=== PATIENT | female | born 1960 | race Caucasian/White ===

== ENCOUNTER 2017-02-10 05:05 | Day surgery (SDC) | payer OTHER ==
[2017-02-03 08:33] VITALS: BMI 49.0
--- NOTE | 2017-02-03 09:16 | PAT Medication Instructions ---
Service Date Feb 03, 2017. Current Home Medication List Atorvastatin (Lipitor), 10 MG PO QAM Hydrochlorothiazide (Hctz), 25 MG PO QAM Lisinopril (Zestril), 20 MG PO QAM Naproxen Ds (Naprosyn Ds), 550 MG PO BID PRN for Migraine Omeprazole (Prilosec), 40 MG PO QAM Propranolol (Inderal), 10 MG PO TID Ropinirole (Requip), 0.25 MG PO HS Sertraline (Zoloft), 50 MG PO QAM Tramadol (Ultram), 50 MG PO Q6 PRN for Pain Medication Instructions For Your Scheduled Surgery Naproxen Ds (Naprosyn Ds), 550 MG PO BID PRN for Migraine (check with surgeon for instructions) - Hold the following medications the morning of surgery: Hydrochlorothiazide (Hctz), 25 MG PO QAM Lisinopril (Zestril), 20 MG PO QAM - Take the following medications the morning of surgery with a sip of water: Sertraline (Zoloft), 50 MG PO QAM Tramadol (Ultram), 50 MG PO Q6 PRN for Pain (okay to take up to 4 hours prior to surgery if needed) Omeprazole (Prilosec), 40 MG PO QAM Propranolol (Inderal), 10 MG PO TID Atorvastatin (Lipitor), 10 MG PO QAM - Hold the following medications as scheduled the night before surgery: Ropinirole (Requip), 0.25 MG PO HS - Take the following medications as scheduled the night before surgery: Tramadol (Ultram), 50 MG PO Q6 PRN for Pain (if needed) Propranolol (Inderal), 10 MG PO TID If you have any questions please call us at [phone] or [phone] or [phone]
--- NOTE | 2017-02-03 10:09 | DIAGNOSTIC IMAGING REPORT ---
CHEST PREADMISSION(PA/LAT) CLINICAL HISTORY: Preoperative chest COMPARISON STUDY: No previous studies for comparison. FINDINGS: The cardiac and mediastinal contours are normal. There is no evidence of focal pulmonary consolidation. There is no evidence of failure. No pleural effusions are visualized.[ IMPRESSION: No active disease in the chest. Electronically signed by: Mark Anthony Bro M.D. 02/03/2017 10:08 AM Dictated Date/Time: 02/03/2017 10:07 AM
[2017-02-03 10:35] LABS: BASO % 0.4 %; BASO ABS # 0.03 K/uL (0-0.2); COMPLETE YES; EOS % 1.5 %; HEMATOCRIT 41.7 % (37-47); IG% 0.1 %; LYMPH % 28.5 %; LYMPH ABS # 2.24 K/uL (1.2-3.4); MEAN CELL VOLUME 92.9 fL (80-100); MEAN CORPUSCULAR HEMOGLOBIN 29.6 pg (25-34); MEAN CORPUSCULAR HGB CONC 31.9 g/dl (32-36); MEAN PLATELET VOLUME 11.7 fL (7.4-10.4); NEUT % 62.5 %; PLATELET COUNT 228 K/uL (130-400); RED BLOOD COUNT 4.49 M/uL (4.2-5.4); WHITE BLOOD COUNT 7.86 K/uL (4.8-10.8)
[2017-02-03 10:40] LABS: BUN/CREATININE RATIO 14.4 (10-20); CALCIUM 8.8 mg/dl (8.5-10.1); CREATININE 0.68 mg/dl (0.60-1.20); POTASSIUM 4.2 mmol/L (3.5-5.1)
[2017-02-03 10:46] LABS: PARTIAL THROMBOPLASTIN RATIO 1.1; PROTHROMBIN TIME (PATIENT) 10.4 SECONDS (9.0-12.0)
[2017-02-03 16:41] LABS: URINE APPEARANCE CLEAR (CLEAR); URINE BILIRUBIN NEG (NEG); URINE COLOR YELLOW; URINE NITRITE NEG (NEG); URINE PH 8.5 (4.5-7.5); URINE SPECIFIC GRAVITY 1.019 (1.000-1.030); UROBILINOGEN NEG (NEG)
[2017-02-03 16:50] LABS: MANUAL MICROSCOPIC REQUIRED? NO; REVIEW REQ? NO
--- NOTE | 2017-02-09 21:48 | History and Physical ---
History & Physical Date Feb 09, 2017. Chief Complaint Right knee pain History of Present Illness The patient is a 56 year old female with complaints of chronic right knee pain which has worsened. She was treated conservatively but failed conservative management. An MRI of the right knee was performed and showed tricompartmental DJD with tearing of the medial meniscus and possibly the lateral meniscus. She is now being set up for surgical management. Past Medical/Surgical History PMH: HTN, Hyperlipidemia, Morbid obesity, RLS, sleep apnea, migraines, meningioma. Past surgical hx: , colonoscopy, [facility], hysterectomy, achilles tendon surgery bilateral. Social hx: former smoker 1 ppd for 3 years. Quit in 1994. Alcohol use during the holidays. Allergies Coded Allergies: Hydromorphone (Verified Allergy, Unknown, itching, 02/03/17) Topiramate (Verified Allergy, Unknown, PRUITIS, 02/03/17) Uncoded Allergies: ADHESIVE TAPE (Allergy, Unknown, rash and blisters, 02/03/17) Home Medications Scheduled Atorvastatin (Lipitor), 10 MG PO QAM Hydrochlorothiazide (Hctz), 25 MG PO QAM Lisinopril (Zestril), 20 MG PO QAM Omeprazole (Prilosec), 40 MG PO QAM Propranolol (Inderal), 10 MG PO TID Ropinirole (Requip), 0.25 MG PO HS Sertraline (Zoloft), 50 MG PO QAM Scheduled PRN Naproxen Ds (Naprosyn Ds), 550 MG PO BID PRN for Migraine Tramadol (Ultram), 50 MG PO Q6 PRN for Pain Physical Examination Skin: warm/dry, no rash Eyes: normal inspection Head: normocephalic, atraumatic Neck: supple, trachea midline Respiratory/Chest: lungs clear, normal breath sounds, no respiratory distress Cardiovascular: regular rate, rhythm, no murmur Abdomen / GI: normal bowel sounds, non tender Extremities: + pertinent finding (Right knee: swelling noted with mild effusion. + West's. Painful PROM of the right knee. Tender at the medial and lateral joint spaces.) Neurologic/Psych: no motor/sensory deficits, alert, oriented x 3 Diagnosis Right knee medial meniscus tear Right knee lateral meniscus tear Right knee osteoarthritis Plan of Treatment Recommend a right knee arthroscopy with partial medial and partial lateral meniscectomies. All potential risks, benefits, complications, alternatives and rehab have been discussed with the patient and she wishes to proceed. She will be scheduled for 02.10.17 with ASA 81 mg BID for 4 wks for DVT prophylaxis.
[~2017-02-10] VITALS: Ht 157.5 cm; Wt 122.8 kg
[~2017-02-10 05:05] MED LIST: ATOR10TA88 PO; HYDR25TA4 PO; LISI-725 PO; NAPR-1168 PO; PRLSR20 PO; PROP10TA7 PO; ROPI0.25 PO; SERT50TA PO; TRAM-10 PO
[2017-02-10 05:30] VITALS: BP 163/99; PULSE 75; TEMP 36.8; O2SAT 95; Ht 157.5 cm; Wt 122.8 kg
[2017-02-10] MEDS ORDERED: LACTATED RINGER'S 1000ML 1,000 ML IV SCH (06:00)
[2017-02-10] MEDS ORDERED: LACTATED RINGER'S 1000ML 500 ML IV ONE (06:00)
[2017-02-10] MEDS ORDERED: CEFAZOLIN 3000 MG/65 ML D5W IV SCH (06:00)
[2017-02-10] MEDS ORDERED: BUPIVACAINE 0.25% 30 ML VIAL ONE (06:42)
[2017-02-10] MEDS ORDERED: BUPIVACAINE 0.5 % 5 MG/1 ML PF 10ML VIAL ONE (06:42)
[2017-02-10] MEDS ORDERED: MIDAZOLAM HCL 1 MG/ML 2ML VIAL ONE (06:43)
[2017-02-10] MEDS ORDERED: FENTANYL CITRATE INJ 50 MCG/1 ML 2 ML VIAL ONE ×2 (06:43→08:23)
[2017-02-10] MEDS ORDERED: DEXAMETHASONE SOD INJ 4 MG/ML VIAL ONE (06:43)
[2017-02-10] MEDS ORDERED: ONDANSETRON INJ 2 MG/ML 2 ML VIAL ONE (06:43)
[2017-02-10] MEDS ORDERED: LIDOCAINE HCL 2% 2 ML VIAL (20MG/ML) ONE (06:43)
[2017-02-10] MEDS ORDERED: PROPOFOL IV EMULSION 10 MG/ML 20 ML VIAL IV ONE (06:43)
[2017-02-10] MEDS ORDERED: BUPIVACAINE/EPINEPHRINE 0.5% MPF 1:200,000 10 ML VIAL ONE ×2 (07:04→07:05)
[2017-02-10] MEDS ORDERED: EpINEphrine HCL INJ 1 MG/ML 5ML SYRINGE ONE ×2 (07:05→08:33)
--- NOTE | 2017-02-10 07:36 | History & Physical Bridge Note ---
H&P Re-Evaluation Bridge Note: I have examined the patient, reviewed the History & Physical and in the interval since the performance of the History & Physical I have noted the following changes of clinical significance: No changes noted
[2017-02-10] MEDS ORDERED: GLYCOPYRROLATE INJ 0.2 MG/ML VIAL ONE ×2 (07:57→08:15)
[2017-02-10] MEDS ORDERED: ROCURONIUM BROMIDE 10 MG/ML 5 ML VIAL ONE (07:57)
[2017-02-10] MEDS ORDERED: NEOSTIGMINE METHYLSULFATE 5 MG/5 ML SYR ONE (07:57)
[2017-02-10] MEDS ORDERED: DiphenhydrAMINE HCL 50 MG/ML VIAL ONE (08:06)
[2017-02-10] MEDS ORDERED: SUCCINYLCHOLINE CHLORIDE 20 MG/ML 10 ML VIAL IV ONE (08:06)
[2017-02-10] MEDS ORDERED: METOCLOPRAMIDE HCL INJ 5 MG/ML 2 ML VIAL ONE (08:06)
[2017-02-10] MEDS ORDERED: SCOPOLAMINE 1.5 MG TDSY TD ONE (08:19)
[2017-02-10] MEDS ORDERED: ATROPINE SULFATE 0.1 MG/ML 5ML SYR IV PRN (08:30)
[2017-02-10] MEDS ORDERED: LABETALOL HCL IV 5 MG/ML 20ML IV PRN (08:30)
[2017-02-10] MEDS ORDERED: ONDANSETRON INJ 2 MG/ML 2 ML VIAL IV PRN (08:30)
[2017-02-10] MEDS ORDERED: MEPERIDINE HCL 25 MG/ML CARP IV PRN (08:30)
[2017-02-10] MEDS ORDERED: EpHEDrine SULFATE INJ 50 MG/ML AMP IV PRN (08:30)
[2017-02-10] MEDS ORDERED: OXYC-57 PO ×2 (08:35→12:30)
[2017-02-10] MEDS ORDERED: LABETALOL HCL IV 5 MG/ML 20ML IV ONE (08:35)
--- NOTE | 2017-02-10 08:37 | Discharge Instructions ---
Discharge Instructions Date of Service Feb 10, 2017. Admission Reason for Admission: Right Knee Lateral/Medial Meniscus Tears Discharge Discharge Diagnosis / Problem: right knee medial meniscus tear, lateral meniscus tear, osteoarthritis Discharge Goals Goal(s): Decrease discomfort, Improve function Activity Recommendations Activity Limitations: per Instructions/Follow-up section Weightbearing Status: Right weightbearing (as tolerated) Instructions / Follow-Up Instructions / Follow-Up ACTIVITY RECOMMENDATIONS: * You may walk on the leg with or without crutches as comfort permits. * Bending of the knee should start at once. * Do not shower for 48 hours following surgery. SPECIAL CARE INSTRUCTIONS: * You may cleanse the skin adjacent to the small wounds with soap and water at the time of the first dressing change. * The application of an ice bag to the front and sides of the knee will decrease swelling and discomfort for the first 48 hours. * The small incisions may be sore and develop bruising. This bruising does not require any special care. SPECIAL PRECAUTIONS: * If you experience unusual pain unrelieved by prescriptions, temperature elevation (100 degrees F. or above) or progressive swelling or bleeding, you should contact our office at for further evaluation. * You may have been prescribed pain medication. If you experience nausea and/or fine skin rash, discontinue this medication and contact our office at for an alternate medication. DRESSING: * Dressing should be comfortable and absorb any leakage of fluid and/or blood. * The dressing may become moist or bloodstained. * Dressing may be removed 3 after surgery and bandaids placed over the small surgical incisions. If can be removed sooner if it becomes very soiled or loose. * Bandaids may be used over next several days as needed and can be discontinued when there is not further drainage from the wounds. FOLLOW UP VISIT: If appointment is not already scheduled: Please call [facility] to make a follow-up appointment for 2 weeks after your surgery at . . Current Hospital Diet Patient's current hospital diet: Discharge Diet Recommended Diet: Regular Diet Pending Studies Studies pending at discharge: no Medical Emergencies . Who to Call and When: Medical Emergencies: If at any time you feel your situation is an emergency, please call 101 immediately. . Non-Emergent Contact Non-Emergency issues call your: Surgeon Call Non-Emergent contact if: temperature is above 101, your pain is not controlled, your pain is worsening, wound has increased drainage, wound has increased redness . "Provider Documentation" section prepared by Lamont Murillo. . VTE Core Measure Inpt VTE Proph given/why not?: Treatment not indicated
[2017-02-10] MEDS ORDERED: OXYCODONE/ACETAMINOPHEN 5-325 TAB PO PRN (08:45)
--- NOTE | 2017-02-10 09:41 | [facility] Post Operative Brief Note ---
Immediate Operative Summary Operative Date Feb 10, 2017. Pre-Operative Diagnosis Right knee medial and lateral meniscus tears; right knee osteoarthritis Post-Operative Diagnosis Right knee medial and lateral meniscus tears; right knee osteoarthritis; Grade 3 degenerative joint disease femoral trochlear, patella and medial femoral condyle; Synovitis Procedure(s) Performed Right Knee Arthroscopy, abrasion chondroplasty medial femoral condyle, patella and femoral trochlea, Partial Medial and Lateral Menisectomies, synovectomy Surgeon Dr. Elizondo Recreation Teacher Surgeon(s) none Estimated Blood Loss 5 cc Findings See dict Specimens None Drains N Anesthesia GLMA w/ local Complication(s) None Disposition Recovery Room / PACU
[2017-02-10] MEDS: FENTANYL CITRATE INJ 50 MCG/1 ML 2 ML VIAL IV PRN ×2 (09:46→09:56)
[2017-02-10] MEDS ORDERED: NURSING VERBAL MED ORDER ONE (10:00)
[2017-02-10] MEDS ORDERED: ACETAMINOPHEN 1000 MG/100 ML IV IV ONE (10:04)
[2017-02-10 10:25] VITALS: BP 166/72; PULSE 61; TEMP 36.6; O2SAT 96
[2017-02-10 10:55] VITALS: BP 171/78; PULSE 64; O2SAT 93
--- NOTE | 2017-02-10 11:00 | Anesthesiology Progress Note ---
Anesthesia Post Op Note Date & Time Feb 10, 2017 at 11:00 Vital Signs Pain Intensity: 10.0 Vital Signs Past 12 Hours Date Time Temp Pulse Resp B/P (MAP) Pulse Ox O2 Delivery O2 Flow Rate FiO2 02/10/17 10:25 36.6 61 20 166/72 96 Nasal Cannula 3 02/10/17 10:10 36.1 63 12 143/65 93 Nasal Cannula 4 02/10/17 10:00 67 12 136/57 97 Oxymask 4 02/10/17 09:50 65 17 146/72 96 Oxymask 10 02/10/17 09:40 73 18 163/83 97 Oxymask 10 02/10/17 09:32 36.8 73 16 178/107 95 Oxymask 10 02/10/17 05:30 36.8 75 18 163/99 (120) 95 Room Air Notes Mental Status: alert / awake / arousable, participated in evaluation Pt Amnestic to Procedure: Yes Nausea / Vomiting: adequately controlled Pain: adequately controlled Airway Patency, RR, SpO2: stable & adequate BP & HR: stable & adequate Hydration State: stable & adequate Anesthetic Complications: no major complications apparent
[2017-02-10 11:25] VITALS: BP 161/73; PULSE 55; O2SAT 93
[2017-02-10] MEDS ORDERED: KETOROLAC TROMETHAMINE 30 MG/ML VIAL ONE (11:39)
--- NOTE | 2017-02-10 18:23 | OPERATIVE REPORT ---
DATE OF OPERATION: 02/10/2017 PREOPERATIVE DIAGNOSES: 1. Right knee medial meniscus tear. 2. Lateral meniscus tear. 3. Chondromalacia of patella and degenerative changes. POSTOPERATIVE DIAGNOSES: 1. Right knee medial meniscus tear. 2. Lateral meniscus tear. 3. Degenerative joint disease grade 3 of the medial femoral condyle. 4. Degenerative joint disease grade 3-4 of the femoral trochlea. 5. Degenerative joint disease grade 3 of the patella. 6. Synovitis. PROCEDURES: 1. Right knee arthroscopy with partial medial meniscectomy. 2. Partial lateral meniscectomy. 3. Abrasion chondroplasty to bleeding bone of the medial femoral condyle. 4. Abrasion chondroplasty to bleeding bone of the patella. 5. Abrasion chondroplasty to bleeding bone of the femoral trochlea. 6. Synovectomy. SURGEON: Dr. Karsten Elizondo. ANALYTICS LEAD: None. ANESTHESIA: General LMA with intra-articular local. SPECIMENS: None. DRAINS: None. COMPLICATIONS: None. BLOOD LOSS: 5 mL. PERTINENT HISTORY: This is a 56-year-old woman who has had chronic progressive and worsening right knee pain over the last several months. She attempted conservative management including home exercises, weight loss, bracing, anti-inflammatories, shoewear modification, and physical therapy and failed all measures. She had an MRI, which demonstrated a significant tear of the posterior horn of the medial meniscus and body of the medial meniscus. Also noted to have degenerative changes and chondromalacia of the patella. The patient was then scheduled for surgery as indicated. All potential risks, benefits, complications, alternatives, rehab, potential for incomplete relief of symptoms, need for further surgery, DVT, PE, , persistent pain, swelling, scarring, weakness, neurovascular injury, and wound complications were discussed with the patient. The patient also understood that there is a higher risk that she may ultimately need a knee replacement. DESCRIPTION OF PROCEDURE: The patient was taken to the operative suite and placed supine on the operating room table. After review of the consent and identification of proper operative site, the patient was then anesthetized with an LMA placed. The tourniquet was placed high on the right thigh over cast padding. Right lower extremity was then sterilely prepped and draped in the usual fashion. The left lower extremity was then properly padded and protected. A white post was added to the bedrail on the right side. Right lower extremity was then elevated and exsanguinated with Esmarch bandage. Tourniquet was inflated to 350 mmHg. Next, a #11 blade scalpel was used to make an incision in the inferior lateral aspect of the knee followed by placement of blunt trocar and sleeve camera and inflow. Next, a superior medial portal was established using a Veress needle and suction. Next, sequential diagnostic arthroscopy commenced in the suprapatellar pouch and synovitis. Also noted were significant degenerative changes of the patellofemoral joint including grade 3-4 chondromalacia and DJD of the femoral trochlea and grade-3 degenerative changes and chondromalacia of the patella. Next, the medial gutter was inspected and noted to be free of any loose bodies; however, there was noted to be synovitis. Next, the medial joint space was inspected and noted to have a large complex tear of the posterior horn and body of the medial meniscus as well as significant degenerative change of the medial femoral condyle of grade 3. Next, the 18-gauge spinal needle was introduced in the medial compartment, followed by incision with an 11 blade scalpel and placement of a 4.5-mm sucker shaver. An abrasion chondroplasty to the bleeding bone was performed of the medial femoral condyle. Once this was completed, a basket biter was inserted and the damaged portion of the medial meniscus was then resected. The 4.5-mm sucker shaver was then used to smooth and contour the meniscus back to a stable peripheral base. A significant portion of the medial meniscus had been removed; however, significant portion of degenerative change and loss of the meniscus was also noted. Next, the ACL and PCL were inspected and noted to be intact. A probe was inserted and used to test the integrity. This was then followed by inspection of the lateral compartment. There was noted to be some fibrillation of the lateral tibial plateau, which was smoothed using a 4.5-mm sucker shaver; however, the articular cartilage of the condyle was noted to be intact as well as the body and anterior horn of the meniscus. The posterior horn of the lateral meniscus was partially torn. At this point, a partial lateral meniscectomy was then performed with a 4.5-mm sucker shaver. Once the damaged portion of meniscus was then resected, attention was then directed toward the lateral gutter. There was noted to be no loose bodies; however, there was noted to be synovitis in the lateral gutter. At this point, a 4.5-mm sucker shaver was then used to perform synovectomy in the suprapatellar pouch, medial and lateral gutters. Next, the 4.5-mm sucker shaver was then used to perform an abrasion chondroplasty to bleeding bone of the patella and the femoral trochlea. Once all particulate debris was then flushed from the joint, the instruments were then removed from the joint, followed by closure of the incisions with interrupted 4-0 nylon sutures and the joint was then injected with 20 mL 0.5% Marcaine with epinephrine followed by closure of the superior portal with interrupted 4-0 nylon sutures. Next, sterile compressive dressing was applied, overwrapped with an Fortino wrap, the tourniquet was released and the patient was then awakened and taken to recovery in stable condition. I attest to the content of the Intraoperative Record and any orders documented therein. Any exception s are noted below.
== END 2017-02-10 12:40 | disposition home or self-care (01) ==
LOC: C.ACU 05:05
PROVIDERS: ATTEND Orthopaedic Surgery Sports Medicine
DX: S83.241A Other tear of medial meniscus, current injury, right knee, initial encounter (principal); S83.281A Other tear of lateral meniscus, current injury, right knee, initial encounter; M22.41 Chondromalacia patellae, right knee; M65.861 Other synovitis and tenosynovitis, right lower leg; X58.XXXA Exposure to other specified factors, initial encounter; M17.11 Unilateral primary osteoarthritis, right knee; I10 Essential (primary) hypertension; E78.5 Hyperlipidemia, unspecified; G47.30 Sleep apnea, unspecified; Z87.891 Personal history of nicotine dependence; E66.01 Morbid (severe) obesity due to excess calories; Z79.899 Other long term (current) drug therapy

== ENCOUNTER 2022-12-01 09:47 | Observation (INO) ==
--- NOTE | 2022-10-28 14:52 | PAT Medication Instructions ---
Medication Instructions Date of Service October 28, 2022 Home Medications atorvastatin 10 mg tablet 10 mg PO QAM cephalexin 500 mg capsule 500 mg PO TID famotidine 20 mg tablet 20 mg PO BID lisinopril 20 mg tablet 20 mg PO QAM meloxicam 15 mg tablet 15 mg PO QAM omeprazole 40 mg capsule,delayed release 40 mg PO QAM oxycodone-acetaminophen 5 mg-325 mg tablet 1 tab PO Q8H PRN prednisone 10 mg tablet 10 mg PO DIRECTED ropinirole 0.25 mg tablet 0.25 mg PO HS sertraline 100 mg tablet 100 mg PO QAM Continue as directed prednisone 10 mg tablet 10 mg PO DIRECTED ASK your surgeon for instructions meloxicam 15 mg tablet 15 mg PO QAM DO NOT take the morning of surgery lisinopril 20 mg tablet 20 mg PO QAM Take morning of surgery With a small sip of water, OTHERWISE NOTHING TO EAT OR DRINK AFTER MIDNIGHT: atorvastatin 10 mg tablet 10 mg PO QAM cephalexin 500 mg capsule 500 mg PO TID famotidine 20 mg tablet 20 mg PO BID omeprazole 40 mg capsule,delayed release 40 mg PO QAM oxycodone-acetaminophen 5 mg-325 mg tablet 1 tab PO Q8H PRN(if needed) sertraline 100 mg tablet 100 mg PO QAM Take evening before surgery cephalexin 500 mg capsule 500 mg PO TID famotidine 20 mg tablet 20 mg PO BID oxycodone-acetaminophen 5 mg-325 mg tablet 1 tab PO Q8H PRN(if needed) ropinirole 0.25 mg tablet 0.25 mg PO HS Other Notes If you have any questions please call us at [phone] or [phone] or [phone] or [phone]
--- NOTE | 2022-11-02 08:55 | Anesthesiology Consultation ---
Date of Service November 02, 2022 Assessment & Plan (1) Encounter for pre-operative examination: Chart Review Chart Review: Acceptable Risk for Surgery and Patient seen in Pre Admission Testing - Due to BMI- patient is NOT an Outpatient Joint candidate Per PAT appt on 11/02/22, patient denies any recent travel or large group activities. Pt is vaccinated for Covid. Will leave to surgeon's discretion if preop Covid testing needed. Educated on importance of using Covid precautions one week prior to surgery Teaching & Discussion Pre-Anesthesia Teaching/Discussion Notes: Instructed NPO after midnight before surgery,except medications with 15 cc of water. Medication instructions provided according to the PAT guidelines. History Surgery Operation Date: 12/01/22 11:45 Proposed Procedures p Right Total Knee Arthroplasty - Vernon Eddy MD Height/Weight Height: 5 ft 2 in Weight: 104 kg Allergies Allergy/AdvReac Type Severity Reaction Status Date / Time hydromorphone Allergy Mild itching Verified 10/28/22 14:18 topiramate Allergy Mild PRUITIS Verified 10/28/22 14:18 ADHESIVE TAPE Allergy Mild rash and Uncoded 10/28/22 14:18 blisters Medications Home Medications Medication Instructions Recorded Confirmed Last Taken atorvastatin 10 mg tablet 10 mg PO QAM 10/28/22 10/28/22 Unknown cephalexin 500 mg capsule 500 mg PO TID 10/28/22 10/28/22 Unknown famotidine 20 mg tablet 20 mg PO BID 10/28/22 10/28/22 Unknown lisinopril 20 mg tablet 20 mg PO QAM 10/28/22 10/28/22 Unknown meloxicam 15 mg tablet 15 mg PO QAM 10/28/22 10/28/22 Unknown omeprazole 40 mg capsule,delayed 40 mg PO QAM 10/28/22 10/28/22 Unknown release oxycodone-acetaminophen 5 mg-325 1 tab PO Q8H PRN Pain 10/28/22 10/28/22 Unknown mg tablet prednisone 10 mg tablet 10 mg PO DIRECTED 10/28/22 10/28/22 Unknown ropinirole 0.25 mg tablet 0.25 mg PO HS 10/28/22 10/28/22 Unknown sertraline 100 mg tablet 100 mg PO QAM 10/28/22 10/28/22 Unknown Past Medical History Medical History (Updated 11/02/22 @ 14:57 by Lidia Kay PA-C) Anxiety GERD (gastroesophageal reflux disease) Well controlled and stable Hiatal hernia Hyperlipidemia Hypertension Multiple fractures of fingers LEFT HAND 3 FINGER FRACTURE (MIDDLE IS A AN OPEN FX) ([employer] INJURY) Does have suture to third finger - gets removed 11/08/22 Wears brace when doing activities to 2nd, 3rd, and 4th left hand digits On current abx - will finish prior to surgery Surgeon aware and feels injury is healed enough to proceed as scheduled and to be able to use a walker Osteoarthritis Restless leg syndrome Sleep apnea CPAP Exercise / Class Metabolic Activity II 4-5 Yardwork/Stairs/Walk up hill (one flight of stairs- no chest pain or SOB ) Past Surgical History Surgical History H/O Achilles tendon repair RT/LEFT History of section History of colonoscopy History of esophagogastroduodenoscopy (EGD) History of partial hysterectomy Nausea and vomiting after administration of anesthetic agent Past Anesthesia History No Hx of Anesthesia Complications (with exception to PONV ) and No Family Hx of Anesthesia Complications History of PONV No Hx of Motion Sickness and History of PONV (severe - even with pre medication with anti nausea medication ) Social History Smoking Status: Former smoker tobacco type: cigarettes Do You Dip or Chew Tobacco: No Smoking End Date: 1994 Hx Alcohol Use: No substance use type: does not use Review of Systems Patient denies chest pain, shortness of breath, dyspnea on exertion, cough, wheezing, palpitations. No hx of seizures, stroke, [place]. No hx of blood clots or blood transfusions Physical Exam Vital Signs VITALS BP 147/76 P 56 TEMP 98.0 SP02 97% RESP 16 Constitutional no acute distress ENMT Mouth: no TMJ clicking Thyromental Distance: > or= 3.5 Finger Breadths (3.5) Mallampati Class: III Mouth / Teeth: 1. Missing 2. Missing Neck neck extension not limited Respiratory normal respiratory effort; no respiratory distress Auscultation: lungs clear to auscultation bilaterally; no wheezes Cardiovascular Rate/Rhythm: regular rate and regular rhythm Heart Sounds: no murmur Vessels: no carotid bruit Musculoskeletal Spine: no pain with cervical ROM Extremities: extremities normal to inspection Psychiatric Orientation: alert Lab Results Anesthesia Preop Results Results Anesthesia Widget: WBC 7.87 K/ul (4.8-10.8) 11/02/22 Hgb 13.5 g/dl (12.0-16.0) 11/02/22 Hct 39.8 % (37.0-47.0) 11/02/22 Plt 232 K/uL (130-400) 11/02/22 Na 141 mmol/L (136-145) 11/02/22 K 3.9 mmol/L (3.5-5.1) 11/02/22 Cl 106 mmol/L (98-107) 11/02/22 CO2 29 mmol/L (21-32) 11/02/22 BUN 13 mg/dl (6-23) 11/02/22 Creat 0.70 mg/dl (0.6-1.2) 11/02/22 Glucose Level 94 mg/dl (70-99(Fasting)) 11/02/22 PT 10.9 Seconds (9.0-12.0) 11/02/22 PTT 26.0 Seconds (21.0-31.0) 11/02/22 INR 1.0 (0.9-1.1) 11/02/22 Urine Color Dark Yellow 11/02/22 Urine Appearance Clear (Clear) 11/02/22 Urine pH 7.0 (4.5-7.5) 11/02/22 Urine Specific Lester 1.021 (1.000-1.030) 11/02/22 Urine Protein Negative (Negative) 11/02/22 Urine Glucose (UA) Negative (Negative) 11/02/22 Urine Ketones Trace (Negative) H 11/02/22 Urine Blood Negative (Negative) 11/02/22 Urine Nitrite Negative (Negative) 11/02/22 Urine Bilirubin Negative (Negative) 11/02/22 Urine Urobilinogen Negative (Negative) 11/02/22 Urine Leukocyte Esterase Negative (Negative) 11/02/22 Blood Type O Negative 11/02/22 Antibody Screen NEGATIVE 11/02/22 Testing Electrocardiogram Date: 11/02/22 Findings: + SB @ (55bpm ) and + no change from (February 03, 2017 per cardio ) Nonspecific ST abnormality Chest X-Ray Date: 11/02/22 Findings: + NAD COVID-19 Risk Screen Screening Information COVID-19 Screen Date: 11/02/22 Exposure 21 Days Family/Household +COVID Last 21 Days: No Exposure 10 Days Any COVID Exposure Last 10 Days: No Symptoms Last 10 Days Experienced COVID Sx Last 10 Days: No + COVID 0-90 Days COVID + in Last 0-90 Days: No Risk Plan COVID Risk Plan: No Risk Identified Patient Education COVID Preop Screening Education Complete: Yes
--- NOTE | 2022-11-24 08:53 | History & Physical Report ---
Date of Service November 24, 2022 Assessment & Plan (1) Primary osteoarthritis of right knee: Plan: Treatment options discussed with patient. She has failed conservative measures and would like to proceed with surgery. Risks, benefits and alternatives to surgery including but not limited to infection, DVT, pain, stiffness, need for revision surgery, damage to blood vessels, damage to nerves, PE, , were discussed with the patient and they wish to proceed. Plan on right total knee arthroplasty scheduled for [facility] on 12/01/[address] Eddy. Plan on Xarelto post op for DVT prophylaxis. Plan on home health vs OPPT post op. All questions answered. Patient will follow up post op. History of Present Illness Chief Complaint: Right knee pain Primary Care Provider: Anny Dixno PA-C 62yo female with PMHx significant for HTN, high cholesterol, IVANNA who presents with ongoing right knee pain. She has pain interfering with her daily activity. She has failed conservative measurs and would like to proceed with knee replacement. Patient denies headaches, sweats, fevers, chills, double vision, blurred vision, cough, sore throat, dysphagia, chest pain, sob, wheezing, n/v/d/c, numbness, tingling, fatigue, urinary symptoms, mood disorders. ROS positive for right knee pain and stiffness. Allergies Allergy/AdvReac Type Severity Reaction Status Date / Time hydromorphone Allergy Mild itching Verified 10/28/22 14:18 topiramate Allergy Mild PRUITIS Verified 10/28/22 14:18 ADHESIVE TAPE Allergy Mild rash and Uncoded 10/28/22 14:18 blisters Home Medications Medication Instructions Recorded Confirmed Type atorvastatin 10 mg tablet 10 mg PO QAM 10/28/22 10/28/22 History cephalexin 500 mg capsule 500 mg PO TID 10/28/22 10/28/22 History famotidine 20 mg tablet 20 mg PO BID 10/28/22 10/28/22 History lisinopril 20 mg tablet 20 mg PO QAM 10/28/22 10/28/22 History meloxicam 15 mg tablet 15 mg PO QAM 10/28/22 10/28/22 History omeprazole 40 mg capsule,delayed 40 mg PO QAM 10/28/22 10/28/22 History release oxycodone-acetaminophen 5 mg-325 1 tab PO Q8H PRN Pain 10/28/22 10/28/22 History mg tablet prednisone 10 mg tablet 10 mg PO DIRECTED 10/28/22 10/28/22 History ropinirole 0.25 mg tablet 0.25 mg PO HS 10/28/22 10/28/22 History sertraline 100 mg tablet 100 mg PO QAM 10/28/22 10/28/22 History Past Med/Surg History Medical History (Updated 11/24/22 @ 08:52 by Vikram Block PA-C) Anxiety GERD (gastroesophageal reflux disease) Well controlled and stable Hiatal hernia Hyperlipidemia Hypertension Multiple fractures of fingers LEFT HAND 3 FINGER FRACTURE (MIDDLE IS A AN OPEN FX) (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) Does have suture to third finger - gets removed 11/08/22 Wears brace when doing activities to 2nd, 3rd, and 4th left hand digits On current abx - will finish prior to surgery Surgeon aware and feels injury is healed enough to proceed as scheduled and to be able to use a walker Osteoarthritis Restless leg syndrome Sleep apnea CPAP Surgical History H/O Achilles tendon repair RT/LEFT History of section History of colonoscopy History of esophagogastroduodenoscopy (EGD) History of partial hysterectomy Nausea and vomiting after administration of anesthetic agent Social History Smoking Status: Former smoker Second Hand Exposure: No; Do You Dip or Chew Tobacco: No; Hx Alcohol Use: No Preferred Language: Swedish Educational Fundraising Director Required: No Beliefs That Will Affect Care: None Current Living Situation: Spouse Feels Safe at Home: Yes Assistive Devices: Cane, CPAP and Glasses Review of Systems All systems reviewed & are unremarkable except as noted in HPI & below Physical Exam Constitutional: well developed and well nourished; no acute distress Eyes: PERRL, conjunctivae normal, anicteric sclerae ENMT: external ear and nose normal, oropharynx normal Neck: trachea midline, no thyromegaly Respiratory: normal respiratory effort, lungs clear to auscultation Cardiovascular: RRR, no murmur, no edema Musculoskeletal: Right knee: ROM 0-100 degrees. Painful ROM. Varus alignment. Mild effusion. Tenderness medial joint line and patella. Stable to valgus and varus stress. Skin: no rashes, warm and dry Neurologic: patellar DTR's 2+ bilat, sensation intact Psychiatric: A+Ox3, euthymic affect Results & Data Diagnostic Findings Bilateral knee x-rays demonstrate that she has tricompartment osteoarthritis bilaterally. Centrally aligned patellae, with slight lateral patellar tilt. She has medial compartment joint space narrowing. Bone on bone in the medial compartment bilaterally, with more bone loss medial side, right greater than left, and slightly larger osteophytes, right greater than left. There is also subchondral sclerosis noted.
[~2022-12-01 09:47] MED LIST changes: +ACETAMINOPHEN 500 MG TAB PO SCH; -ATOR10TA88 PO; +CeleBREX 200 MG CAP PO SCH; +DEXAMETHASONE SOD INJ 4 MG/ML VIAL ONE; +FAMOTIDINE 20 MG TAB PO SCH; +GABAPENTIN 600 MG DOSE PO SCH; -HYDR25TA4 PO; +KETAMINE 50 MG/5 ML SYRINGE ONE; -LISI-725 PO; +LR 500ML BOLUS, THEN 15ML/HR IV SCH; +METOCLOPRAMIDE HCL 10 MG TABLET PO SCH; +MIDAZOLAM HCL 1 MG/ML 2ML VIAL ONE; -NAPR-1168 PO; +ONDANSETRON INJ 2 MG/ML 2 ML VIAL ONE; +ORTHO JOINT ANESTHETIC ONE; -PRLSR20 PO; -PROP10TA7 PO; +PROPOFOL IV EMULSION 10 MG/ML 20 ML VIAL IV ONE; -ROPI0.25 PO; +ROPIVACAINE 0.5% 5 MG/ML 30 ML VIAL ONE; +ROPIVACAINE 0.5% HCL/PF 150 MG, BUPIVACAINE 0.75% MPF 20 ML, EPINEPHrine 30MG/30ML (OR ... INFIL SCH; -SERT50TA PO; -TRAM-10 PO; +TRANEXAMIC ACID 1,000 MG **IV Intra-op IV SCH; +TRANEXAMIC ACID 1,000 MG **IV Pre-op IV SCH; +ceFAZolin 2000MG 2,000 MG/15 ML SYR IV SCH; +dexAMETHasone 4 MG TAB PO SCH; +fentaNYL citrate PF 100 MCG/2 ML VIAL ONE
[2022-12-01] MEDS ORDERED: ePHEDrine sulfate 50 MG/ML AMP IV PRN (10:36)
[2022-12-01] MEDS ORDERED: ONDANSETRON INJ 2 MG/ML 2 ML VIAL IV PRN ×2 (10:36→15:00)
[2022-12-01] MEDS ORDERED: fentaNYL citrate PF 100 MCG/2 ML VIAL IV PRN (10:36)
[2022-12-01] MEDS ORDERED: ATROPINE SULFATE 0.1 MG/ML 10ML SYR IV PRN (10:36)
[2022-12-01] MEDS ORDERED: PROMETHAZINE HCL 6.25 MG in SODIUM CHLORIDE 0.9% 50 ML IV PRN (10:36)
[2022-12-01] MEDS ORDERED: KETOROLAC 30 MG/ML VIAL IV PRN (10:36)
--- NOTE | 2022-12-01 10:41 | History & Physical Bridge Note ---
Date of Service December 01, 2022 History & Physical Bridge Note I have examined the patient, reviewed the History & Physical and in the interval since the performance of the History & Physical I have noted the following changes of clinical significance: no changes noted
[2022-12-01] MEDS ORDERED: PROPOFOL IV EMULSION 10 MG/ML 20 ML VIAL IV ONE (11:44)
--- NOTE | 2022-12-01 12:55 | Operative Report ---
Post Operative Report Pre & Post Diagnosis Operation Date: 12/01/22 11:40 Pre-Op Diagnosis: Right Knee Osteoarthritis , morbid obesity BMI 41.0 Post-Op Diagnosis: Right Knee Osteoarthritis, morbid obesity BMI 41.0 I identified the patient and participated in the time-out.: Yes Procedure Operation Date: 12/01/22 11:40 Actual Procedures p Right Total Knee Arthroplasty, Cemented(Right), increased difficulty BMI 41.0- Vernon Eddy MD Surgeon Vernon Eddy MD Process Laboratory Specialist Vikram TOBIN Estimated Blood Loss 5 Findings Consistent with Post-Op Diagnosis Specimens Bone cuts Drains 2 Hemovac Anesthesia Type MAC Spinal Regional Complications none Disposition Disposition: Recovery Room Indications 62-year-old female with chronic progressive osteoarthritis both knees right greater than left. Patient has limited range of motion and severe pain and disability. Description of Procedure Patient taken to the operating room the size under spinal MAC regional block anesthesia. Patient was placed supine on the operating table. A pneumatic tourniquet was placed about the obese right upper thigh. The right lower extremity was prepped and draped in sterile fashion. Knee exam demonstrated an obese knee old scars from arthroscopic surgery and very obese thigh and a flexion contracture about 15 to 20 degrees with range of motion 20 to 95 degrees of flexion. There is no pseudolaxity and no instability. Could not determine whether she had an effusion due to the obesity.. The leg was elevated exsanguinated with an Esmarch bandage and pneumatic tourniquet was raised to 350 millimeters of mercury. Skin incised sharply in longitudinal fashion. Deep layer of subcutaneous tissue was divided down to the fascia. Subcutaneous flaps elevated. Incision was made through the medial retinaculum extending up in the mid third of the quadriceps tendon and down to the medial tibial tubercle. Intra-articular findings demonstrated tricompartmental osteoarthritis mainly medial compartment and patellofemoral joint with [id number] medial compartment. The oNoise triFlashstartsn total knee arthroplasty system was used. To expose the knee the infrapatellar fat pad was resected. The meniscal remnants and cruciate ligaments were resected. The anterior fat pad over the femur in the area of the anterior flange of the femoral component was resected. Lateral synovial bands release. The femur was exposed. An intramedullary drill hole was made into the canal. A guide reema was placed. Distal femoral cutting guide was adjusted to resect a 5 degree valgus cut with 10 millimeters distal femur resected. The knee was extended and a subperiosteal peel lateral release was performed around the patella. Patella width was measured and width was reproduced using a freehand cut technique and a 31 mm symmetrical patella component. The 3 drill holes were made and the excess lateral facet was beveled off to prevent any impingement. Attention was taken back to the femur which was exposed with retractors and the femoral sizing guide was pinned in position. The drill holes were placed in 3 of external rotation to match epicondylar axis. Femur sized for a 3 posterior stabilized component. The 4-in-1 cutting block was placed and then the anterior posterior and chamfer cuts are made. The tibia was then subluxed. The external tibial cutting guide was just to make a perpendicular cut to the long axis of the tibia below the most deficient bone loss side. A lamina ripper operator was used and the flexion extension gaps were balanced. No releases were required. All posterior osteophytes removed. All meniscal remnants were resected. The tibia exposed and the trial tibial component size 3 was externally rotated in line with the tibial tubercle and pinned in position. The punch for stem was used. The notch cutting device was centered appropriately and the femoral notch cut was made. The femoral trial was inserted. Trial tibial inserts were placed and size 13 gave balanced ligaments through flexion and extension. Patella tracking was assessed. The patella tracked centrally. The trial components were then removed and the orthomix anesthetic cocktail was injected per protocol. The knee was then copiously irrigated with pulsatile lavage saline solution. Final components were then cemented with Refobacin cement. Final components were size 3 right triathlon posterior stabilized femoral component, 3 universal tibial baseplate with a 12 x 50 mm cemented stem and a 13 mm posterior stabilized polyethylene X.3 polyethylene tibial component and a X.3 polyethylene symmetrical patella size 31 x 9. After the cement cured the Betadine soak was used for 3 minutes. Further pulsatile lavage irrigation was then performed and 2 Hemovac drains were brought out laterally. The quadriceps tendon and medial retinaculum were closed with figure of 8 #1 Vicryl sutures. The knee was taken through full range of m otion and the repair was secure. Knee range of motion was 0 through 125 degrees. The subcutaneous tissues were closed with 2-0 Vicryl sutures. Skin was closed with roseline. Sterile dressings were applied. The patient tolerated the procedure well. Drew TOBIN was my physician dam tender assistant who participated as customer care assistant and was involved in all aspects of the procedure including patient positioning prepping and draping,leg positioning ,soft tissue retraction and instrument management and participated in the closing and will participate in postoperative care of the patient. There was increased level difficulty due to this obesity the patient which added 40 minutes to the procedure. The patient tolerated the procedure well. I attest to the content of the Intraoperative Record and any orders documented therein. Any exceptions are noted below.
--- NOTE | 2022-12-01 14:26 | XRay Report ---
XR knee RT 1 or 2V routine CLINICAL HISTORY: Surgical Post Op COMPARISON: None FINDINGS: Alignment of the total right knee arthroplasty is anatomic. No periprosthetic fracture. No unexpected radiopaque foreign bodies are present. There are drains and skin roseline. IMPRESSION: Expected findings following total right knee arthroplasty. ACT 112: Negative or not required by law. Electronically signed by: Lambert Ferguson M.D. 12/01/2022 2:25 PM
--- NOTE | 2022-12-01 14:27 | Anesthesiology Progress Note ---
Date of Service December 01, 2022 Anesthesia Post Procedure Vital Signs Vital Signs: Temp Pulse Pulse Resp BP Pulse Ox O2 Del Method 12/01/22 14:20 36.4 C L 71 16 138/77 100 Nasal Cannula 12/01/22 14:10 66 12 140/87 100 Nasal Cannula 12/01/22 14:00 70 12 147/90 H 98 Nasal Cannula 12/01/22 13:50 73 20 141/88 H 96 Nasal Cannula 12/01/22 13:40 36.0 C L 78 18 145/76 H 96 Nasal Cannula 12/01/22 10:09 36.8 C 77 21 150/87 H 97 Room Air O2 Flow Rate 12/01/22 14:20 2 12/01/22 14:10 2 12/01/22 14:00 2 12/01/22 13:50 2 12/01/22 13:40 2 12/01/22 10:09 Pain Intensity Right Knee: Pain Intensity: 6 Transfer of Care Handoff Completed per policy Notes Mental Status: alert / awake / arousable Patient Amnestic to Procedure: Yes Nausea / Vomiting: adequately controlled Pain: adequately controlled Airway Patency, RR, SpO2: stable & adequate BP & HR: stable & adequate Hydration State: stable & adequate Anesthetic Complications: no major complications apparent
[2022-12-01] MEDS ORDERED: METOCLOPRAMIDE HCL INJ 5 MG/ML 2 ML VIAL IV PRN (15:00)
[2022-12-01] MEDS ORDERED: MoRPHine SULFATE 2 MG/ML CARP IV PRN (15:00)
[2022-12-01] MEDS ORDERED: NALOXONE HCL 0.4 MG/1 ML VIAL/CARP IV PRN (15:00)
[2022-12-01] MEDS ORDERED: MAGNESIUM HYDROXIDE SUSP 30 ML UDC PO PRN (15:00)
[2022-12-01] MEDS ORDERED: bisacodyL 10 MG SUPP PR PRN (15:00)
[2022-12-01] MEDS ORDERED: SODIUM CHLORIDE 0.9% 1000ML 1,000 ML IV SCH (15:00)
[2022-12-01] MEDS: ACETAMINOPHEN 500 MG TAB PO SCH ×2 (15:16→21:09)
--- NOTE | 2022-12-01 16:54 | Consultation ---
Date of Consultation December 01, 2022 Assessment & Plan (1) Primary osteoarthritis of right knee: Patients pain is well managed at this time dvt prophylaxis xarelto. morphine and oxy as needed prn for pain (2) Hypertension: continue lisnopril (3) Hyperlipidemia: continue atorvastatin (4) GERD (gastroesophageal reflux disease): continue omeprazole (5) Anxiety: Depression: continue sertraline Plan Will continue xarelto Gi prophylaxis : continue omeprazole . History of Present Illness Reason for Consultation: MEDICAL MANAGEMENT FOR RIGHT TOTAL KNEE ARTHROPLASTY Attending Physician: Vernon Eddy MD History of Present Illness 62yo female with PMHx significant for HTN, high cholesterol, IVANNA for post op management of right total knee arthroplasty . at this time patients pain is well managed . is having her diet . denies any chest pain , shortness of breath . reviewed meds and allergy profile for patient. denies any diabetes at this time. reconcilled her meds Allergies Allergy/AdvReac Type Severity Reaction Status Date / Time hydromorphone Allergy Mild itching Verified 12/01/22 10:06 topiramate Allergy Mild PRUITIS Verified 12/01/22 10:06 ADHESIVE TAPE Allergy Mild rash and Uncoded 10/28/22 14:18 blisters Home Medications Medication Instructions Recorded Confirmed Type atorvastatin 10 mg tablet 10 mg PO QAM 10/28/22 12/01/22 History cephalexin 500 mg capsule 500 mg PO TID 10/28/22 12/01/22 History famotidine 20 mg tablet 20 mg PO BID 10/28/22 12/01/22 History lisinopril 20 mg tablet 20 mg PO QAM 10/28/22 12/01/22 History meloxicam 15 mg tablet 15 mg PO QAM 10/28/22 12/01/22 History omeprazole 40 mg capsule,delayed 40 mg PO QAM 10/28/22 12/01/22 History release oxycodone-acetaminophen 5 mg-325 1 tab PO Q8H PRN Pain 10/28/22 10/28/22 History mg tablet prednisone 10 mg tablet 10 mg PO DIRECTED 10/28/22 12/01/22 History ropinirole 0.25 mg tablet 0.25 mg PO HS 10/28/22 12/01/22 History sertraline 100 mg tablet 100 mg PO QAM 10/28/22 12/01/22 History Patient History Medical History (Updated 12/01/22 @ 16:50 by Brad Morejon MD) Anxiety GERD (gastroesophageal reflux disease) Well controlled and stable Hiatal hernia Hyperlipidemia Hypertension Multiple fractures of fingers LEFT HAND 3 FINGER FRACTURE (MIDDLE IS A AN OPEN FX) (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) Does have suture to third finger - gets removed 11/08/22 Wears brace when doing activities to 2nd, 3rd, and 4th left hand digits On current abx - will finish prior to surgery Surgeon aware and feels injury is healed enough to proceed as scheduled and to be able to use a walker Osteoarthritis Restless leg syndrome Sleep apnea CPAP Surgical History H/O Achilles tendon repair RT/LEFT History of section History of colonoscopy History of esophagogastroduodenoscopy (EGD) History of partial hysterectomy Nausea and vomiting after administration of anesthetic agent Social History Smoking Status: Former smoker Smoking End Date: 1994; Second Hand Exposure: No; Do You Dip or Chew Tobacco: No; Hx Alcohol Use: No Preferred Language: Tristanian Communication Ability: Effective Overlock Sleeve Setter Required: No Beliefs That Will Affect Care: None Current Living Situation: Spouse Feels Safe at Home: Yes Safety Concerns: Feels Safe At This Time Assistive Devices: Cane and Walker Review of Systems Review of Systems: Reviewed all systems as noted in H/P , rest reviewed as negative Physical Exam Physical Exam: HEENT:No JVD , Normocephalic , atraumatic CV: S1/S2+ , no murmurs Resp: Air entry present bilaterally.no crackles, no wheeze . GI: Abdomen soft non tender . Musculoskeletal: examined for joint tenderness. Skin: no rashes Psych: Normal affect Neuro: Patient is awake alert not in distress , No focal neuro deficits noted Ext: no edema. Results & Data Vital Signs (Past 12 Hours) Vital Signs Temp Pulse Pulse Resp BP Pulse Ox O2 Del Method 12/01/22 15:47 68 18 133/81 100 Room Air 12/01/22 15:15 71 18 153/81 H 100 Nasal Cannula 12/01/22 14:45 36.4 C L 73 16 133/82 100 Nasal Cannula 12/01/22 14:30 70 16 137/82 100 Nasal Cannula 12/01/22 14:20 36.4 C L 71 16 138/77 100 Nasal Cannula 12/01/22 14:10 66 12 140/87 100 Nasal Cannula 12/01/22 14:00 70 12 147/90 H 98 Nasal Cannula 12/01/22 13:50 73 20 141/88 H 96 Nasal Cannula 12/01/22 13:40 36.0 C L 78 18 145/76 H 96 Nasal Cannula 12/01/22 10:09 36.8 C 77 21 150/87 H 97 Room Air O2 Flow Rate 12/01/22 15:47 12/01/22 15:15 2 12/01/22 14:45 2 12/01/22 14:30 2 12/01/22 14:20 2 12/01/22 14:10 2 12/01/22 14:00 2 12/01/22 13:50 2 12/01/22 13:40 2 12/01/22 10:09
[2022-12-01] MEDS: ceFAZolin 2000MG 2,000 MG/15 ML SYR IV SCH (18:16)
[2022-12-01] MEDS: FAMOTIDINE 20 MG TAB PO SCH (19:33)
[2022-12-01] MEDS: DOCUSATE SODIUM 100 MG CAP PO SCH (19:35)
[2022-12-01] MEDS ORDERED: rOPINIRole HCL 0.25 MG TABLET PO SCH (21:00)
[2022-12-01] MEDS ORDERED: SENNA 8.6 MG TAB PO SCH (21:00)
[2022-12-02] MEDS: oxyCODONE HCL IR 5 MG TAB (IMMEDIATE RELEASE) PO PRN ×2 (00:47→08:19)
[2022-12-02] MEDS: ceFAZolin 2000MG 2,000 MG/15 ML SYR IV SCH (02:17)
[2022-12-02] MEDS: ACETAMINOPHEN 500 MG TAB PO SCH (05:19)
[2022-12-02 06:40] LABS: Hematocrit (blood only) 35.9 % (37.0-47.0); Hemoglobin 12.3 g/dl (12.0-16.0); Mean Corpuscular Hemoglobin 30.8 pg (25.0-34.0); Mean Corpuscular Hgb Conc 34.3 g/dL (32.0-36.0); Mean Corpuscular Volume 89.8 fL (80.0-100.0); Mean Platelet Volume 11.5 fL (9.4-12.4); Platelet Count 201 K/uL (130-400); RDW Coefficient of Variation 11.8 % (11.5-14.5); RDW Standard Deviation 38.3 fL (36.4-46.3); White Blood Count 17.63 K/ul (4.8-10.8)
[2022-12-02 06:56] LABS: BUN Creatinine Ratio 20.8 (10-20); Calcium 8.6 mg/dl (8.6-10.3); Creatinine Clr Calc Pharmacy 89.3 ml/min; Est GFR (African American) 103.3 ml/min; Est GFR (Non-African American) 89.1 ml/min; Potassium 3.7 mmol/L (3.5-5.1)
[2022-12-02] MEDS: DOCUSATE SODIUM 100 MG CAP PO SCH (07:45)
[2022-12-02] MEDS: FAMOTIDINE 20 MG TAB PO SCH (07:47)
--- NOTE | 2022-12-02 08:34 | Orthopedic Progress Note ---
Date of Service December 02, 2022 Assessment & Plan (1) Primary osteoarthritis of right knee: Plan: Postop day 1 status post right total knee arthroplasty PT/OT protocols. Weightbearing as tolerated. DVT prophylaxis-rivaroxaban daily, SCDs, FADIA hose Pain management as written. DC planning-patient is planning for outpatient PT upon discharge. Admission and Anticipated Discharge Date Admission Date: December 01, 2022 Subjective Postop day 1 Patient sitting up in bed awake and alert. No complaints this morning. Pain is controlled. Denies shortness of breath, chest pain, lightheadedness. Physical Exam Physical Exam: Dressings are clean, dry, and intact. Calves are soft nontender. Neurovascular intact. Toes are mobile. She has good dorsiflexion and plantarflexion of the right foot. Hemovac drainage is minimal. Results & Data Vital Signs (Past 12 Hours) Vital Signs Temp Pulse Resp BP Pulse Ox O2 Del Method 12/02/22 06:29 36.5 C 62 18 132/78 97 Room Air 12/02/22 03:24 36.5 C 60 18 133/75 96 Room Air 12/01/22 22:58 36.5 C 74 18 164/88 H 94 Room Air Laboratory Results Laboratory Results WBC 17.63 K/ul (4.8-10.8) H 12/02/22 06:04 RBC 4.00 M/uL (4.20-5.40) L 12/02/22 06:04 Hgb 12.3 g/dl (12.0-16.0) 12/02/22 06:04 Hct 35.9 % (37.0-47.0) L 12/02/22 06:04 MCV 89.8 fL (80.0-100.0) 12/02/22 06:04 MCH 30.8 pg (25.0-34.0) 12/02/22 06:04 MCHC 34.3 g/dL (32.0-36.0) 12/02/22 06:04 RDW Std Deviation 38.3 fL (36.4-46.3) 12/02/22 06:04 RDW Coeff of Chaparro 11.8 % (11.5-14.5) 12/02/22 06:04 Plt Count 201 K/uL (130-400) 12/02/22 06:04 MPV 11.5 fL (9.4-12.4) 12/02/22 06:04 Sodium 139 mmol/L (136-145) 12/02/22 06:04 Potassium 3.7 mmol/L (3.5-5.1) 12/02/22 06:04 Chloride 107 mmol/L (98-107) 12/02/22 06:04 Carbon Dioxide 25 mmol/L (21-32) 12/02/22 06:04 Anion Gap 7 (3-11) 12/02/22 06:04 BUN 15 mg/dl (6-23) 12/02/22 06:04 Creatinine 0.72 mg/dl (0.6-1.2) 12/02/22 06:04 Est Cr Clr Drug Dosing 89.3 ml/min 12/02/22 06:04 Est GFR ( Amer) 103.3 ml/min 12/02/22 06:04 Est GFR (Non-Af Amer) 89.1 ml/min 12/02/22 06:04 BUN/Creatinine Ratio 20.8 (10-20) H 12/02/22 06:04 Glucose 105 mg/dl (70-99(Fasting)) H 12/02/22 06:04 Calcium 8.6 mg/dl (8.6-10.3) 12/02/22 06:04 SARS-CoV-2, RNA, NAAT NEGATIVE (NEGATIVE) 12/01/22 09:55 Impressions Knee X-Ray 12/01/22 13:45 XR knee RT 1 or 2V routine CLINICAL HISTORY: Surgical Post Op COMPARISON: None FINDINGS: Alignment of the total right knee arthroplasty is anatomic. No periprosthetic fracture. No unexpected radiopaque foreign bodies are present. There are drains and skin roseline. IMPRESSION: Expected findings following total right knee arthroplasty. ACT 112: Negative or not required by law. Electronically signed by: Lambert Ferguson M.D. 12/01/2022 2:25 PM
[2022-12-02] MEDS ORDERED: MULTIVITAMIN TAB PO SCH (09:00)
[2022-12-02] MEDS ORDERED: lisinopril 20 MG TAB PO SCH (09:00)
[2022-12-02] MEDS ORDERED: ATORVASTATIN 10 MG TAB PO SCH (09:00)
[2022-12-02] MEDS ORDERED: SERTRALINE HCL 100 MG TABLET PO SCH (09:00)
[2022-12-02] MEDS ORDERED: RIVAROXABAN 10 MG TABLET PO SCH (09:00)
[2022-12-02] MEDS ORDERED: PANTOprazole 40 MG TAB PO SCH (09:00)
--- NOTE | 2022-12-02 11:40 | Discharge Summary ---
Date of Service December 02, 2022 Admission HPI Per Admitting Provider 62yo female with PMHx significant for HTN, high cholesterol, IVANNA who presents with ongoing right knee pain. She has pain interfering with her daily activity. She has failed conservative measurs and would like to proceed with knee replacement. Patient denies headaches, sweats, fevers, chills, double vision, blurred vision, cough, sore throat, dysphagia, chest pain, sob, wheezing, n/v/d/c, numbness, tingling, fatigue, urinary symptoms, mood disorders. ROS positive for right knee pain and stiffness. Admission Exam Per Admitting Provider Constitutional: well developed and well nourished; no acute distress Eyes: PERRL, conjunctivae normal, anicteric sclerae ENMT: external ear and nose normal, oropharynx normal Neck: trachea midline, no thyromegaly Respiratory: normal respiratory effort, lungs clear to auscultation Cardiovascular: RRR, no murmur, no edema Musculoskeletal: Right knee: ROM 0-100 degrees. Painful ROM. Varus alignment. Mild effusion. Tenderness medial joint line and patella. Stable to valgus and varus stress. Skin: no rashes, warm and dry Neurologic: patellar DTR's 2+ bilat, sensation intact Psychiatric: A+Ox3, euthymic affect Principal Diagnosis Right knee osteoarthritis Discharge Exam Dressings are clean, dry, and intact. Calves are soft nontender. Neurovascular intact. Toes are mobile. She has good dorsiflexion and plantarflexion of the right foot. Hemovac drainage is minimal Constitutional well developed and well nourished; no acute distress Discharge Data Allergies Allergy/AdvReac Type Severity Reaction Status Date / Time hydromorphone Allergy Mild itching Verified 12/01/22 10:06 topiramate Allergy Mild PRUITIS Verified 12/01/22 10:06 ADHESIVE TAPE Allergy Mild rash and Uncoded 10/28/22 14:18 blisters Consultations 11/29/22 12:47 Consult Hospitalist Routine Procedures Performed Operation Date: 12/01/22 11:40 Actual Procedures p Right Total Knee Arthroplasty, Cemented(Right) - Vernon Eddy MD Ordered Studies 12/01/22 05:00 US - OR guided needle placemen Routine Hospital Course (1) Primary osteoarthritis of right knee: Postop day 1 status post right total knee arthroplasty PT/OT protocols. Weightbearing as tolerated. DVT prophylaxis-rivaroxaban daily, SCDs, FADIA hose Pain management as written. DC planning-patient is planning for outpatient PT upon discharge. Lab Results 12/01/22 12/02/22 12/02/22 Range/Units 09:55 06:04 06:04 WBC 17.63 H (4.8-10.8) K/ul RBC 4.00 L (4.20-5.40) M/uL Hgb 12.3 (12.0-16.0) g/dl Hct 35.9 L (37.0-47.0) % MCV 89.8 (80.0-100.0) fL MCH 30.8 (25.0-34.0) pg MCHC 34.3 (32.0-36.0) g/dL RDW Std Deviation 38.3 (36.4-46.3) fL RDW Coeff of Chaparro 11.8 (11.5-14.5) % Plt Count 201 (130-400) K/uL MPV 11.5 (9.4-12.4) fL Sodium 139 (136-145) mmol/L Potassium 3.7 (3.5-5.1) mmol/L Chloride 107 (98-107) mmol/L Carbon Dioxide 25 (21-32) mmol/L Anion Gap 7 (3-11) BUN 15 (6-23) mg/dl Creatinine 0.72 (0.6-1.2) mg/dl Est Cr Clr Drug Dosing 89.3 ml/min Est GFR ( Amer) 103.3 ml/min Est GFR (Non-Af Amer) 89.1 ml/min BUN/Creatinine Ratio 20.8 H (10-20) Glucose 105 H (70-99(Fasting)) mg/dl Calcium 8.6 (8.6-10.3) mg/dl SARS-CoV-2, RNA, NAAT NEGATIVE (NEGATIVE) Total Time Total Time Spent Total Time Spent (In Minutes): 20 Discharge Plan Discharge Items Patient Disposition: Home - Self-Care Reason For Visit: Right Knee Osteoarthritis Discharge Diagnosis: Right knee osteoarthritis Activity: Per Instructions section Weightbearing: Right weightbearing Weightbearing Comment: as tolerated with walker Non-emergency contact: Surgeon Call non-emergency contact if: you have any medication questions, your pain is not controlled, your pain is unusual for you, you have a fever, your temperature is above 101, your wound has increased redness and your wound has increased drainage Follow-up/Referrals: Anny Dixon PA-C [Primary Care Provider] - Vernon Eddy MD [Surgeon] - ( follow-up with Dr. Eddy or his PA in 2 weeks from the date of surgery for your first postoperative visit.) Diet: Regular Addtl Attending Provider Instructions: ACTIVITY RECOMMENDATIONS: SELF CARE INSTRUCTIONS AFTER TOTAL KNEE REPLACEMENT A. You may need to continue a physical therapy program after discharge from the hospital. There are several options available to you. Your doctor will assist you in selecting the best one for you. 1. An out-patient facility 2 to 3 times a week for therapy or home therapy. 2. Continue working on all exercises taught to you in the hospital. Your goals should be to increase bending of your knee to 90 degrees and beyond and to fully straighten your knee. B. You may progress at your own pace from walking with a walker or crutches to a cane; then to no assistive devices. C. Make walking a part of your daily routine. Be up as much as comfortable with rest periods throughout the day. Rest with leg elevation is very important. Use the ice wrap frequently for the first 3-4 weeks. D. There are no restrictions on activities. You may ride in a car, shop, participate in stick puller and all social activities. E. Wear the long elastic stockings (FADIA hose) 20 hours a day for 2 weeks after surgery. They can be removed several times a day for laundering and for a bath. F. You may shower, no tub baths until cleared by your doctor. SPECIAL CARE INSTRUCTIONS: VERY IMPORTANT TO READ AND REVIEW A. There are a few signs you need to watch for after you are home. Call [facility] if you notice any of the followin. Increased severe knee pain. Some pain is expected especially when you exercise. 2. Increased swelling in your leg or knee; pain or swelling of the calf muscle in either lower leg. 3. Any fluid drainage from the incision. 4. Shortness of breath or chest pain. B. Please call [facility] at if you have any concerns or questions about your operation or recovery. The doctor or his nurse will return your call promptly. C. You must take antibiotics before dental work, bladder, bowel or other surgery. Your doctor will provide you with a permanent care to carry describing this precaution. IMPORTANT: * REMEMBER TO TAKE ASPIRIN, 81 MG, TWICE DAILY FOR 4 WEEKS UNLESS OTHERWISE DIRECTED. THIS IS YOUR BLOOD THINNER. * HIGH RISK PATIENTS MAY BE PRESCRIBED A STRONGER BLOOD THINNER. THIS WILL BE PROVIDED AT DISCHARGE. * CALL IF INCREASED PAIN, REDNESS, DRAINAGE OR FEVER GREATER THAT 101. * WEAR FADIA HOSE 20 HOURS PER DAY FOR 2 WEEKS. You should perform daily dressing changes. You may shower after 48 hours. You can get incision wet indirectly. Do not soak or submerge. IF INCISION IS LEAKING THROUGH DRESSING, CALL THE OFFICE . FOLLOW UP VISIT: If appointment is not already scheduled: Please call [facility] to make a follow-up appointment for 2 weeks after your surgery at . Stand-Alone Forms: [facility] [employer], Smoking Cessation Medications and DC Order Prescriptions: New Xarelto 10 mg Tablet 10 mg PO DAILY 30 Days Qty: 30 0RF acetaminophen [Tylenol Extra Strength] 500 mg Tablet 1,000 mg PO Q8 14 Days Qty: 84 0RF polyethylene glycol 3350 [Miralax] 17 gram powder in packet 17 g PO DAILY PRN (Reason: constipation) Qty: 5 0RF cefadroxil 500 mg capsule 500 mg PO BID Qty: 14 0RF oxycodone 5 mg tablet 5 mg PO Q4H MDD 6 PRN (Reason: pain) Qty: 30 0RF Continued atorvastatin 10 mg Tablet 10 mg PO QAM meloxicam 15 mg Tablet 15 mg PO QAM lisinopril 20 mg Tablet 20 mg PO QAM sertraline 100 mg Tablet 100 mg PO QAM omeprazole 40 mg Capsule,Delayed Release(Dr/Ec) 40 mg PO QAM famotidine 20 mg Tablet 20 mg PO BID ropinirole 0.25 mg Tablet 0.25 mg PO HS Rx Instructions: administer 1-3 hours before bedtime prednisone 10 mg Tablet 10 mg PO DIRECTED Patient Comments: TAKING FOR ARTHRITIS FLARE UP RT FOOT Rx Instructions: see taper instructions Discontinued oxycodone-acetaminophen 5-325 mg Tablet 1 tab PO Q8H PRN (Reason: Pain) cephalexin 500 mg Capsule 500 mg PO TID Patient Comments: OPEN FX LEFT HAND 3 FINGER FRACTURE (MIDDLE IS A OPEN FX) Discharge Orders: Discharge Order (Routine); Ordered 12/02/22 Ordered By: Dom Fuentes Admission Data Admit Date/Time: 12/01/22 13:45 Attending Provider: Vernon Eddy Admit Provider: Vernon Eddy Primary Care Provider: Anny Dixon Other Providers: Jayne Trevizo Manabendra Other Interventions: Discharge Summary Assessment (RN) Last Done: 12/02/22 10:00
--- NOTE | 2022-12-02 13:43 | Hospitalist Progress Note ---
Date of Service December 02, 2022 Assessment & Plan (1) Primary osteoarthritis of right knee: Plan: POD#[address] Eddy Activity and wound care orders as per ortho Pain control with bowel regimen PT/OT Monitor H/H for acute blood loss anemia and transfuse blood products PRN EBL 5 cc Hgb stable at 12.3 (2) Leukocytosis: Plan: WBC 17 K Likely due to intraoperative steroids and stress response No signs of infection (3) Hypertension: Plan: BP controlled, continue lisinopril (4) Hyperlipidemia: Plan: Continue atorvastatin (5) GERD (gastroesophageal reflux disease): Plan: Continue omeprazole (6) Anxiety: Plan: Depression Continue sertraline DVT PROPHYLAXIS Rivaroxaban as per Ortho Thank you for this consultation. We will follow the patient with you during their hospital stay. You can reach a member of the [facility] Hospitalist Team 16/01 via the [facility] in [place] Text. Admission and Anticipated Discharge Date Admission Date: December 01, 2022 Supervising Physician Co-Signing Physician Notes The patient left the hospital before being seen by me. Subjective Follow-up for medical management, s/p right TKA. Patient seen and examined. Sitting up in wheelchair. Feels well, offers no complaints. Eager to be discharged. Denies chest pain or shortness of breath. Pain is well controlled. No abdominal pain or nausea. Urinating and + BM Physical Exam Constitutional: WD/WN, vitals as above no acute distress Respiratory: normal respiratory effort, lungs clear to auscultation Cardiovascular: Rate/Rhythm: regular rate and regular rhythm Vessels: normal peripheral pulses Extremities: no edema Gastrointestinal (Abdomen): Percussion/Palpation: abdomen soft; abdomen nontender Musculoskeletal: S/p right knee surgery, dressing CDI, CSM checks intact RLE, drain in place draining bloody drainage Skin: no rashes, warm and dry Neurologic: no focal motor deficits Psychiatric: A+Ox3, euthymic affect Results & Data Results & Data Vital Signs (Past 12 Hours) Vital Signs Temp Pulse Resp BP Pulse Ox O2 Del Method 12/02/22 10:00 36.5 C 62 18 132/78 97 12/02/22 06:29 36.5 C 62 18 132/78 97 Room Air 12/02/22 03:24 36.5 C 60 18 133/75 96 Room Air Laboratory Results Short CBC 12/02/22 Range/Units 06:04 WBC 17.63 H (4.8-10.8) K/ul Hgb 12.3 (12.0-16.0) g/dl Hct 35.9 L (37.0-47.0) % Plt Count 201 (130-400) K/uL BMP 12/02/22 06:04 Sodium 139 Potassium 3.7 Chloride 107 Carbon Dioxide 25 BUN 15 Creatinine 0.72 Glucose 105 H Calcium 8.6
== END 2022-12-02 11:07 | disposition home or self-care (01) ==
LOC: ASU 09:47 → 3E 09:47
DX: Z87.891 Personal history of nicotine dependence; Z79.899 Other long term (current) drug therapy; E78.5 Hyperlipidemia, unspecified; Z88.5 Allergy status to narcotic agent; I10 Essential (primary) hypertension; Z68.41 Body mass index [BMI] 40.0-44.9, adult; D72.829 Elevated white blood cell count, unspecified; E66.01 Morbid (severe) obesity due to excess calories; M17.11 Unilateral primary osteoarthritis, right knee; K21.9 Gastro-esophageal reflux disease without esophagitis

== ENCOUNTER 2024-01-08 08:25 | Observation (INO) ==
--- NOTE | 2023-12-27 10:44 | PAT Medication Instructions ---
Medication Instructions Date of Service December 27, 2023 Home Medications atorvastatin 10 mg tablet 10 mg PO HS famotidine 20 mg tablet 20 mg PO BID lisinopril 20 mg tablet 20 mg PO QAM meloxicam 15 mg tablet 15 mg PO QAM omeprazole 40 mg capsule,delayed release 40 mg PO QAM ropinirole 0.25 mg tablet 0.25 mg PO HS sertraline 100 mg tablet 150 mg PO QAM trazodone 100 mg tablet 100 mg PO HS ASK your surgeon for instructions meloxicam 15 mg tablet 15 mg PO QAM DO NOT take the morning of surgery lisinopril 20 mg tablet 20 mg PO QAM Take morning of surgery With a small sip of water, OTHERWISE NOTHING TO EAT OR DRINK AFTER MIDNIGHT: famotidine 20 mg tablet 20 mg PO BID omeprazole 40 mg capsule,delayed release 40 mg PO QAM sertraline 100 mg tablet 150 mg PO QAM Take evening before surgery atorvastatin 10 mg tablet 10 mg PO HS famotidine 20 mg tablet 20 mg PO BID ropinirole 0.25 mg tablet 0.25 mg PO HS trazodone 100 mg tablet 100 mg PO HS Other Notes If you have any questions please call us at [phone] or [phone] or [phone] or [phone]
--- NOTE | 2024-01-03 13:25 | Anesthesiology Consultation ---
Date of Service January 03, 2024 Assessment & Plan (1) Encounter for pre-operative examination: - patient reports upcoming Dr. Anny Dixon PCP office visit 01/05/24-will add to chart for completion. - Outpatient joint assessment: Patient is currently scheduled for inpatient pathway. If re-evaluated and patient/surgeon requests outpatient pathway, patient is not ideal candidate for outpatient joint program from anesthesia standpoint. Chart Review Chart Review: Pending: Refer to Additional Notes / Consult section and Patient seen in Pre Admission Testing Teaching & Discussion Pre-Anesthesia Teaching/Discussion Notes: Instructed NPO after midnight before surgery, except medications with 15 cc of water. Medication instructions provided according to the PAT guidelines. History Surgery Operation Date: 01/08/24 13:35 Proposed Procedures p Left Total Knee Arthroplasty - Vernon Eddy MD Height/Weight Height: 5 ft 2 in Weight: 73.8 kg Allergies Allergy/AdvReac Type Severity Reaction Status Date / Time hydromorphone Allergy Mild itching Verified 12/26/23 09:01 topiramate Allergy Mild Itching Verified 01/03/24 13:21 adhesive Allergy rash and Verified 12/26/23 09:01 blisters Medications Home Medications Medication Instructions Recorded Confirmed Last Taken atorvastatin 10 mg tablet 10 mg PO HS 10/28/22 12/26/23 11/29/22 famotidine 20 mg tablet 20 mg PO BID 10/28/22 12/26/23 11/24/22 lisinopril 20 mg tablet 20 mg PO QAM 10/28/22 12/26/23 11/30/22 20:30 meloxicam 15 mg tablet 15 mg PO QAM 10/28/22 12/26/23 11/10/22 omeprazole 40 mg capsule,delayed 40 mg PO QAM 10/28/22 12/26/23 11/24/22 release ropinirole 0.25 mg tablet 0.25 mg PO HS 10/28/22 12/26/23 11/24/22 sertraline 100 mg tablet 150 mg PO QAM 10/28/22 12/26/23 11/24/22 trazodone 100 mg tablet 100 mg PO HS 12/26/23 12/26/23 Unknown Past Medical History Medical History (Updated 01/04/24 @ 08:38 by Mariela Rich PA-C) GERD (gastroesophageal reflux disease) controlled, stable per pt Hiatal hernia History of anxiety Hyperlipidemia Hypertension controlled, stable per pt Multiple fractures of fingers (~2022) Osteoarthritis Restless leg syndrome Sleep apnea no longer needs CPAP due to weight loss per pt Patient denies h/o stroke, seizures, heart attack, heart failure, DM, blood clots/DVTs or blood transfusions. Exercise / Class Metabolic Activity II 4-5 Yardwork/Stairs/Walk up hill (denies chest discomfort or shortness of breath with one flight of stairs) Past Surgical History Surgical History (Updated 01/03/24 @ 13:53 by Mariela Rich PA-C) H/O Achilles tendon repair bilat. History of section History of colonoscopy History of esophagogastroduodenoscopy (EGD) History of partial hysterectomy History of total right knee replacement Hx laparoscopic cholecystectomy (~03/2023) Nausea and vomiting after administration of anesthetic agent denies needing scop patch Past Anesthesia History No Hx of Anesthesia Complications and No Family Hx of Anesthesia Complications History of PONV No Hx of Motion Sickness and History of PONV (denies needing scop patch) Social History Smoking Status: Former smoker tobacco type: cigarettes Do You Dip or Chew Tobacco: No Smoking End Date: 1994 Hx Alcohol Use: Yes alcohol intake frequency: holidays/special occasions only Alcohol Intake Frequency Comment: very rare use Hx Substance Use: No substance use type: does not use Review of Systems Patient denies chest pain, shortness of breath, dyspnea on exertion, fever, chills, cough, wheezing, or palpitations. Physical Exam Vital Signs Vitals BP 122/78 P 64 TEMP 98.8 SP02 98% on RA RESP 17 Physical Patient resting comfortably in chair in no acute distress, alert and oriented, responding appropriately throughout visit Full cervical extension range of motion without pain TMD 3.5 finger breadths Mallampati Score 3 Dentition: several broken teeth; denies loose teeth, caps/crowns, implants or bridges Lungs: normal respiratory effort. Good air movement, clear throughout to auscultation, no adventitious breath sounds Cardiac: regular rate and rhythm, no murmurs noted Carotid arteries: negative bruit bilat Lab Results Anesthesia Preop Results Results Anesthesia Widget: WBC 5.46 K/ul (4.8-10.8) 01/03/24 Hgb 13.1 g/dl (12.0-16.0) 01/03/24 Hct 40.4 % (37.0-47.0) 01/03/24 Plt 203 K/uL (130-400) 01/03/24 Na 139 mmol/L (136-145) 01/03/24 K 4.6 mmol/L (3.5-5.1) 01/03/24 Cl 104 mmol/L (98-107) 01/03/24 CO2 30 mmol/L (21-32) 01/03/24 BUN 18 mg/dl (6-23) 01/03/24 Creat 0.61 mg/dl (0.6-1.2) 01/03/24 Glucose Level 83 mg/dl (70-99(Fasting)) 01/03/24 PT 10.3 Seconds (9.0-12.0) 01/03/24 PTT 26 Seconds (21-31) 01/03/24 INR 0.9 (0.9-1.1) 01/03/24 Urine Color Yellow 01/03/24 Urine Appearance Clear (Clear) 01/03/24 Urine pH 5.5 (4.5-7.5) 01/03/24 Urine Specific [place] 1.021 (1.000-1.030) 01/03/24 Urine Protein Negative (Negative) 01/03/24 Urine Glucose (UA) Negative (Negative) 01/03/24 Urine Ketones Negative (Negative) 01/03/24 Urine Blood Negative (Negative) 01/03/24 Urine Nitrite Negative (Negative) 01/03/24 Urine Bilirubin Negative (Negative) 01/03/24 Urine Urobilinogen Negative (Negative) 01/03/24 Urine Leukocyte Esterase Negative (Negative) 01/03/24 Blood Type O Negative 01/03/24 Antibody Screen NEGATIVE 01/03/24 Testing Electrocardiogram Date: 01/03/24 Sinus bradycardia, rate 59 bpm Chest X-Ray Date: 01/03/24 No acute process.
--- NOTE | 2024-01-07 18:39 | History & Physical Report ---
Date of Service January 07, 2024 Assessment & Plan (1) Osteoarthritis of left knee: Plan: End-stage osteoarthritis left knee. Patient wants proceed with total knee replacement like she had on her opposite knee. Osteoarthritis type: primary Qualified Code(s): M17.12 - Unilateral primary osteoarthritis, left knee History of Present Illness Primary Care Provider: Anny Dixon PA-C 63-year-old female with osteoarthritis left knee failed conservative management patient was proceed with left knee replacement. Patient had successful right knee replacement a year ago. Patient denies headaches, sweats, fevers, chills, double vision, blurred vision, cough, sore throat, dysphagia, chest pain, sob, wheezing, n/v/d/c, numbness, tingling, fatigue, urinary symptoms, mood disorders. ROS positive for high blood pressure high cholesterol snoring use of CPAP, anxiety, shortness of breath when mowing or shoveling, osteoarthritis of the spine, acid reflux, hiatal hernia, kidney stones, nausea with anesthesia. Allergies Allergy/AdvReac Type Severity Reaction Status Date / Time hydromorphone Allergy Mild itching Verified 12/26/23 09:01 topiramate Allergy Mild Itching Verified 01/03/24 13:21 adhesive Allergy rash and Verified 12/26/23 09:01 blisters Home Medications Medication Instructions Recorded Confirmed Type atorvastatin 10 mg tablet 10 mg PO HS 10/28/22 12/26/23 History famotidine 20 mg tablet 20 mg PO BID 10/28/22 12/26/23 History lisinopril 20 mg tablet 20 mg PO QAM 10/28/22 12/26/23 History meloxicam 15 mg tablet 15 mg PO QAM 10/28/22 12/26/23 History omeprazole 40 mg capsule,delayed 40 mg PO QAM 10/28/22 12/26/23 History release ropinirole 0.25 mg tablet 0.25 mg PO HS 10/28/22 12/26/23 History sertraline 100 mg tablet 150 mg PO QAM 10/28/22 12/26/23 History trazodone 100 mg tablet 100 mg PO HS 12/26/23 12/26/23 History Past Med/Surg History Problem List (Updated 01/07/24 @ 18:41 by Vernon Eddy MD) Osteoarthritis of left knee Leukocytosis 12/02/22 Primary osteoarthritis of right knee Encounter for pre-operative examination GERD (gastroesophageal reflux disease) Well controlled and stable Anxiety Hypertension Hyperlipidemia Medical History (Updated 01/07/24 @ 18:41 by Vernon Eddy MD) History of anxiety Hyperlipidemia Hypertension controlled, stable per pt GERD (gastroesophageal reflux disease) controlled, stable per pt Multiple fractures of fingers (~2022) Osteoarthritis Hiatal hernia Restless leg syndrome Sleep apnea no longer needs CPAP due to weight loss per pt Surgical History (Updated 01/03/24 @ 13:53 by Mariela Rich PA-C) History of total right knee replacement Hx laparoscopic cholecystectomy (~03/2023) Nausea and vomiting after administration of anesthetic agent denies needing scop patch H/O Achilles tendon repair bilat. History of esophagogastroduodenoscopy (EGD) History of colonoscopy History of partial hysterectomy History of section Social History Smoking Status: Former smoker Smoking End Date: 1994; Second Hand Exposure: No; Do You Dip or Chew Tobacco: No; Tobacco Cessation Education Requested by Patient: No Hx Alcohol Use: Yes Hx Substance Use: No Preferred Language: Luxembourgish Communication Ability: Effective Cuff Cutter Required: No Beliefs That Will Affect Care: None Current Living Situation: Spouse Other Information That Helps Us Care for You: No Feels Safe at Home: Yes Safety Concerns: Feels Safe At This Time Assistive Devices: Glasses Review of Systems All systems reviewed & are unremarkable except as noted in HPI & below Physical Exam Constitutional: WD/WN, vitals as above Respiratory: normal respiratory effort; no respiratory distress Cardiovascular: Rate/Rhythm: regular rate and regular rhythm Musculoskeletal: Left knee exam demonstrates varus alignment with medial joint line tenderness and crepitation with no instability. Range of motion 0 through 130 degrees. Right knee healed incision with stable range of motion with 0 through 130 degrees range of motion. No pain right knee. Skin: no rashes, warm and dry Neurologic: normal touch/pain/proprioception Psychiatric: A+Ox3, euthymic affect Results & Data Diagnostic Findings Radiographs demonstrate grade 4 medial compartment osteoarthritis left knee and a satisfactory aligned [place] triathlon knee on the right knee.
[~2024-01-08 08:25] MED LIST changes: -ACETAMINOPHEN 500 MG TAB PO SCH; +BUPIVACAINE 0.5 % 5 MG/1 ML PF 10ML VIAL ONE; -CeleBREX 200 MG CAP PO SCH; -DEXAMETHASONE SOD INJ 4 MG/ML VIAL ONE; -FAMOTIDINE 20 MG TAB PO SCH; -GABAPENTIN 600 MG DOSE PO SCH; -KETAMINE 50 MG/5 ML SYRINGE ONE; -LR 500ML BOLUS, THEN 15ML/HR IV SCH; -METOCLOPRAMIDE HCL 10 MG TABLET PO SCH; -MIDAZOLAM HCL 1 MG/ML 2ML VIAL ONE; -ONDANSETRON INJ 2 MG/ML 2 ML VIAL ONE; -ORTHO JOINT ANESTHETIC ONE; -PROPOFOL IV EMULSION 10 MG/ML 20 ML VIAL IV ONE; -ROPIVACAINE 0.5% HCL/PF 150 MG, BUPIVACAINE 0.75% MPF 20 ML, EPINEPHrine 30MG/30ML (OR ... INFIL SCH; -TRANEXAMIC ACID 1,000 MG **IV Intra-op IV SCH; -TRANEXAMIC ACID 1,000 MG **IV Pre-op IV SCH; -ceFAZolin 2000MG 2,000 MG/15 ML SYR IV SCH; -dexAMETHasone 4 MG TAB PO SCH; -fentaNYL citrate PF 100 MCG/2 ML VIAL ONE
--- OUTSIDE RECORDS SUMMARY | 2024-01-08 09:00 | External Medical Summary | Summary of Care ---
Author Name Unknown Organization [facility] Address [address] [place] [address] Phone [phone] Care Team Providers Care Drafter Electromechanical Name Role Phone Anny Dixon PA-C Primary Care Provider [phone] Encounter Details Date Type Department Care Team (Late st Contact Info) Description 01/03/2024 Result Scan Unspecified Department <No scans attached> Allergies Active Allergy Reactions Criticality Noted Date Comments Adhesive Tape 01/05/2015 Blisters Hydromorphone Hcl Itching 05/14/2015 Topiramate Itching 09/03/2014 documented as of this encounter (statuses as of 01/05/2024) Medications Medication Sig Dispensed Refills Start Date End Date Status CPAP every night at bedtime. Active Ondansetron 4 MG Oral Tablet Disintegrating (Zofran)Indications:N ausea without vomiting Place 1 Tablet on tongue every 8 hours as needed for Nausea. dissolve on tongue. 30 Tablet 05/05/2021 Active Naloxone HCl 4 MG/0.1ML Nasal Liquid (Narcan Nasal) Administer 1 spray into 1 nostril for suspected opioid overdose. Seek immediate medical attention. [email or web address] Words [email or web address] Each 3 05/16/2023 Active Atorvastatin Calcium 10 MG Oral Tablet (Lipitor)Indications: Dyslipidemia, goal LDL below 130 Take 1 Tablet by mouth at bedtime. 90 Tablet 3 07/20/2023 Active Famotidine 20 MG Oral Tablet (Pepcid)Indications:G isatu-esophageal reflux disease without esophagitis Take 1 Tablet by mouth in the morning and 1 Tablet before bedtime. 180 Tablet 3 07/20/2023 Active Lisinopril 20 MG Oral Tablet (Prinivil)Indications :HTN, goal below 130/80 Take 1 Tablet by mouth in the morning. 90 Tablet 3 07/20/2023 Active Meloxicam 15 MG Oral Tablet (Mobic)Indications:Ge neralized osteoarthritis Take 1 Tablet by mouth in the morning. 90 Tablet 3 07/20/2023 Active Omeprazole 40 MG Oral Capsule Delayed Release (PriLOSEC)Indications :Gastro-esophageal reflux disease without esophagitis Take 1 Capsule by mouth in the morning. 90 Capsule 3 07/20/2023 Active rOPINIRole HCl 0.25 MG Oral Tablet (Requip)Indications:R LS (restless legs syndrome) Take 1 Tablet by mouth at bedtime. 90 Tablet 3 07/20/2023 Active LORazepam 0.5 MG Oral Tablet (Ativan)Indications:A djustment reaction with anxiety and depression Take 1 Tablet by mouth daily as needed for Anxiety. 10 Tablet 07/20/2023 Active Multivitamin Adult Oral Tablet Chewable Take by mouth. Active Sertraline HCl 100 MG Oral Tablet (Zoloft)Indications:M oderate episode of recurrent major depressive disorder (HCC),SEPIDEH (generalized anxiety disorder) Take 1.5 Tablets by mouth in the morning. 135 Tablet 1 10/05/2023 Active traZODone HCl 100 MG Oral Tablet (Desyrel)Indications: Insomnia secondary to depression with anxiety Take 1 Tablet by mouth at bedtime. 90 Tablet 1 10/05/2023 Active documented as of this encounter (statuses as of 01/05/2024) Active Problems Problem Noted Date Diagnosed Date Moderate episode of recurrent major depressive d isorder 10/05/2023 Insomnia secondary to depression with anxiety Generalized osteoarthritis 07/20/2023 SEPIDEH (generalized anxiety disorder) 10/27/2021 Gastro-esophageal reflux disease without esophag itis 12/31/2020 IVANNA (obstructive sleep apnea) 06/09/2016 RLS (restless legs syndrome) 04/01/2016 Vitamin D deficiency 06/23/2015 Meningioma 08/26/2014 HTN, goal below 130/80 Dyslipidemia, goal LDL below 130 documented as of this encounter (statuses as of 01/05/2024) Resolved Problems Problem Noted Date Diagnosed Date Resolved Date Acute cholecystitis 03/26/2023 07/20/19 Food insecurity 10/31/2022 07/20/2023 Overview: Per [facility] Protocol Current moderate episode of major depressive disorder without prior episode 10/17/2022 Stage 3 chronic kidney disease 10/17/2022 07/20/2023 Body mass index (BMI) of 40. 0 to 44.9 in adult 03/07/2022 07/20/2023 Overview: Per Obesity protocol - Per Obesity protocol Body mass index (BMI) of 45. 0 to 49.9 in adult 11/01/2021 03/10/2022 Overview: Per Obesity protocol Depression with anxiety 06/23/202109/24 Class 3 severe obesity due t o excess calories with serious comorbidity and body mass index (BMI) of 50.0 to 59.9 in adult 06/23/2021 Overview: Per Obesity protocol Major depressive disorder, s carmen episode, unspecified 12/31/2020 06/23/2021 Anxiety disorder due to medical condition 12/31/2020 06/23/2021 Body mass index (BMI) of 50. 0 to 59.9 in adult 03/03/2020 07/08/2021 Overview: Per Obesity protocol - Multifocal PVCs 10/22/2019 10/17/2022 Overview: 13 September 2019. Body mass index (BMI) of 45. 0 to 49.9 in adult 03/27/2017 03/05/2020 Overview: Per Obesity protocol #1 Migraine without aura, not intractable 02/02/2017 07/20/2023 Overview: 3-4x/month - uses Naprosyn Propanolol for prophylaxis Body mass index (BMI) of 40.0-44.9 in adult 06/09/2016 03/30/2017 Overview: Per Obesity protocol #1 Morbid obesity due to excess calories 03/03/2016 07/20/2023 Adjustment disorder with depressed mood 03/03/2016 03/03/2016 Mixed emotional features as adjustment reaction 03/03/2016 02/23/2022 Kidney disease, chronic, sta ge III (GFR 30-59 ml/min) 08/26/2014 09/03/2015 HTN, goal below 140/90 09/29 Impaired fasting glucose documented as of this encounter (statuses as of 01/05/2024) Immunizations Name Administration Dates Next Due COVID-19 mRNA, LNP-s, No Pre serve, 2-Dose Series (Moderna) 02/27/2021,08/20/2020,07/23/2020 COVID-19, MRNA-LNP, 23-24, P F, 30 MCG/0.3 mL, 12 YRS AND ABOVE, IM (PFIZER-Comirnaty) 06/12/2023 H1N1 2009 Influenza, IM 07/11/2009 RSV Vac., Recomb, Adjuvant, PF,0.5 Ml (Arexvy) 09/29/2023 Seasonal Influenza, PF, 6 M & above, IM , (FluLaval or Fluzone) 04/10/2023,04/02/2022,03/04/2021,2017 Seasonal Influenza, Quadriva lent, No Preserve, IM 02/27/2020,05/13/2019,06/30/2016 Seasonal Influenza, Split, I IV3, With Preserve, Inj 05/11/2017,05/14/2015,07/11/2009,2006 TDAP (age 10 and older)(Boostrix) 10/27/2022 TDAP, Age 7 and older, IM (Adacel) 02/03/2016 Zoster Vaccine Recombinant (Shingrix) 07/18/2019 ,05/14/2019 documented as of this encounter Social History Tobacco Use Types Packs/Day Years Used Date Smoking Tobacco: Former Cigarettes 1 3 0 08/27/1991 - 08/26/1994 Smokeless Tobacco: Never Alcohol Use Standard Drinks/Week Comments Not Currently 0 (1 standard drink = 0.6 oz pur e alcohol) PHQ-2 Answer Date Recorded PHQ Adult Total Score 7 10/05/2023 Hunger Vital Sign Answer Date Recorded Within the past 12 months, y ou worried that your food would run out before you got the money to buy more. Never true 07/06/19 24 Within the past 12 months, t he food you bought just didn't last and you didn't have money to get more. Never true 07/06/2023 Childcare Answer Date Recorded Do you feel overwhelmed with taking care of a child, family member or friend? No 07/06/2023 Does your family need help f inding childcare? (Household - for ages 0-17 years) Not on file 07/06/2023 Clothing Answer Date Recorded Have you been unable to get clothing when it was really needed? No 07/06/2023 Is your family able to get c lothes or diapers when needed? (Household - for ages 0-17 years) Not on file 07/06/2023 Personal Safety Answer Date Recorded Do you feel unsafe or have concerns for your saf ety? No 07/06/2023 Do you have concerns for you r family's safety? (Household - for ages 0-17 years) Not on file 07/06/2023 Utilities Answer Date Recorded Do you have trouble paying y our heating, water, or electric bill? No 07/06/2023 Is your family able to pay t he heat, water, or electric bill? (Household - for ages 0-17 years) Not on file 07/06/2023 Does your family have access to good internet? (Household - for ages 0-17 years) Not on file 07/06/2023 Employment Status Answer Date Recorded Are you unemployed or without regular income? No 07/06/2023 Does the household have a re gular source of income? (Household - for ages 0-17 years) Not on file 07/06/2023 Social Connections Answer Date Recorded How often do you feel lonely or isolated from th ose around you? Often 07/06/2023 Financial Resource Strain Answer Date R ecorded Do you have any trouble payi ng for your medications, or do you think you might in the future? No 07/06/2023 Does your family have troubl e paying for medicine? (Household - for ages 0-17 years) Not on file 07/06/2023 Transportation Needs Answer Date Record ed READ ONLY Do you have troubl e getting a ride to medical visits or work? Never True 07/06/2023 Does your family have a hard time getting a ride to doctors visits? (Household - for ages 0-17 years) Not on file 07/06/2023 Has lack of transportation k ept you from medical appointments, meetings, work, or from getting things needed for daily living? Check all that apply. (Adult - for ages 18 years and over) Not on file 07/06/2023 Do you (or your family) have trouble finding or paying for a ride (transportation)? (Household - for ages 0-17 years) Not on file 07/06/2023 Housing Stability Answer Date Recorded Do you currently live in a s helter or have no steady place to sleep at night? No 07/06/2023 READ ONLY Do you think you a re at risk of becoming homeless? No 07/06/2023 Does your family worry about paying for your home or becoming homeless? (Household - for ages 0-17 years) Not on file 0 07/06/2023 Are you homeless or worried that you might be in the future? (Adult - for ages 18 years and over) Not on file Are you (or your family) felicitas eless or worried that you might be in the future? (Household - for ages 0-17 years) Not on file Food Insecurity Answer Date Recorded Do you need food for this week? No 07/06/2023 Are you able to get enough f ood for your family? (Household - for ages 0-17 years) Not on file 07/06/2023 Does your family need food t his week? (Household - for ages 0-17 years) Not on file 07/06/2023 Do you always have enough fo od for your family? (Household - for ages 0-17 years) Not on file 07/06/2023 Sex and Gender Information Value Date Recorded Sex Assigned at Female 10/09/2018 10:26 AM EDT Gender Identity Female 10/09/2018 10:26 AM EDT Sexual Orientation Straight 10/09/2018 10 :26 AM EDT Job Start Date Occupation Industry Not on file Not on file Not on file documented as of this encounter Functional Status Functional Status Response Date of Assess ment Are you deaf or do you have serious difficulty h earing? No 06/15/2015 Are you blind or do you have serious difficulty seeing, even when wearing glasses? No 06/15/2015 Do you have serious difficul ty walking or climbing stairs? (5 years old or older) No 06/15/2015 Do you have difficulty dress ing or bathing? (5 years old or older) No 06/15/2015 Because of a physical, menta l, or emotional condition, do you have difficulty doing errands alone such as visiting a doctor s office or shopping? (15 years old or older) Yes 06/15/20 15 Cognitive Status Response Date of Assessm ent Because of a physical, menta l, or emotional condition, do you have serious difficulty concentrating, remembering, or making decisions? (5 years old or older) Yes 06/15/2015 documented as of this encounter Plan of Treatment Upcoming Encounters Date Type Department Care Team (Late st Contact Info) Description 01/05/2024 2:00 PM EDT Office Visit [address] [place] [id number] Anny Dixon PA-C [address] [place] [address] [place] [id number] 01/19/2024 10:00 AM EDT Office Visit Ophthalmology, [place] [id number] Anthony Navarro DO [place] [id number] 04/15/2024 4:15 PM EDT Appointment Radiology, [address] [place] [phone] Scheduled Procedures Name Priority Associated Diagnoses Date/Ti me COLONOSCOPY FLEXIBLE PROXIMA L DIAGNOSTIC Recall Special screening for malignant neoplasms, colon Health Maintenance Due Date Last Done Comments Cologuard 09/13/2004 Fecal Occult Blood Test 09/13/2004 Sigmoidoscopy 09/13/2004 Influenza Vaccine (FLU shot) (#1) 2024 04/10/2023, 04/02/2022, 03/04/2021, Additional history exists Mammogram 04/13/2024 04/13/2023, 10/2021, 03/11/2022, Additional history exists GFR 07/20/2024 01/03/2024, 06/27, 05/16/2023, Additional history exists Depression Monitoring 10/04/2024 10/05/2023 Colonoscopy 01/05/2025 01/05/2015, 01/05/2015 Colorectal Cancer Screening 01/05/2025 Lipid Panel 02/04/2025 02/05/2020, 01/2017, 12/29/2014, Additional history exists Albumin/Creatinine Ratio 07/20/2026 024, 03/03/2022, 12/01/2016 Diabetes Screening 07/20/2026 01/03/2024, 0 07/20/2023, 05/16/2023, Additional history exists DTaP,Tdap,and Td Vaccines (3 - Td or Tdap) 10/27/2032 10/27/2022, 02/03/2016 Zoster Vaccines Completed 07/18/2019, 05/14/2019 COVID-19 Vaccine Completed 06/12/2023, 09/2020, 08/20/2020, Additional history exists HPV (Gardasil) Vaccine Aged Out No lo nger eligible based on patient's age to complete this topic Hepatitis B Vaccine Aged Out No longe r eligible based on patient's age to complete this topic MENINGOCOCCAL (MENACTRA/MENVEO) Aged Out No longer eligible based on patient's age to complete this topic Pneumococcal Vaccine: Pediatrics (0 to 5 Years) and At-Risk Patients (6 to 64 Years) Aged Out No longer eligible based on patient's age to complete this topic documented as of this encounter Medical Devices Implanted Type Area Die Equipment Operator Device Identifier Shelf Expiration Date Model / Serial / Lot Breast- 2 Implanted:Qty: 1 on 04/06/2022 by Francisco Velez MD Breast [employer] 11/29/2022 / / [id number] Description:stainless steel biopsy site marker left breast documented as of this encounter Procedures Procedure Name Priority Date/Time Associated Diagnosis Comments EKG SCANNED RESULT 01/03/2024 documented in this encounter Results * EKG SCANNED RESULT (01/03/2024) 01/03/2024 No Physician Data Unknown EKG documented in this encounter Care Teams Drafter Electromechanical Relationship Specialty Start Date End Date Anny Dixon PA-C [address] [facility] [place] [phone] PCP - General Physician Tavern Keeper 09/25/20 documented as of this encounter
--- OUTSIDE RECORDS SUMMARY | 2024-01-08 09:00 | External Medical Summary | Summary of Care ---
Author Name Unknown Organization [facility] Address [address] [place] [address] Phone [phone] Care Team Providers Care Infantry Senior Sergeant Name Role Phone Anny Dixon PA-C Primary Care Provider +1- [phone] Reason for Visit * Reason Comments pre-op exam Pt is here for a pre -op , getting a total knee replacement on 01/07, pt has no concerns about the procedure. Encounter Details Date Type Department Care Team (Late st Contact Info) Description 01/05/2024 2:00 PM EDT Office Visit [place] [address] [place] [address] [phone] Anny Dixon PA-C [address] [place] [address] [place] [address] [phone] Preoperative general physical examination*; Primary osteoarthritis of one knee, left Allergies Active Allergy Reactions Criticality Noted Date [...] suspected opioid overdose. Seek immediate medical attention. [email or web address] 1 Each 3 05/16/2023 Active Atorvastatin Calcium [...] Date Resolved Date Acute cholecystitis 03/26/2023 07/20/19 24 Food insecurity 10/31/2022 07/20/2023 Overview: Per [facility] Protocol Current moderate episode of major depressive disorder without prior episode 10/17/2022 3 Stage 3 chronic kidney disease 10/17/2022 07/20/2023 [...] on file documented as of this encounter Last Filed Vital Signs Vital Sign Reading Time Taken Comments Blood Pressure 130/56 01/05/2024 2:06 PM EDT Pulse 62 01/05/2024 2:06 PM EDT Temperature 36.2 C (97.1 F) 01/05/2024 2:06 PM ED T Respiratory Rate 16 01/05/2024 2:06 PM EDT Oxygen Saturation 98% 01/05/2024 2:06 PM EDT Inhaled Oxygen Concentration - - Weight 75.1 kg (165 lb 9.6 oz) 01/05/2024 2:06 P M EDT Height 157.5 cm (5' 2.01") 01/05/2024 2:06 PM ED T Body Mass Index 30.28 01/05/2024 2:06 PM EDT documented in this encounter Functional Status Functional Status Response [...] Yes 06/15/2015 documented as of this encounter Progress Notes * Anny Dixon PA-C - 01/05/2024 2:08 PM EDT Images from the original note were not included. Pre-Operative Medical Evaluation Nursing Notes: Petty Dietrich MED ASSIST 01/05/24 1408 Signed Chief Complaint Patient presents with pre-op exam Pt is here for a pre-op , getting a total knee replacement on 01/07, pt has no concerns about the procedure. Procedure Information Type of Surgery: L TKA Referring Physician / Surgeon: Surjit Date of procedure: 01/08/24 Brief History of Present Illness: 63 yo female with chronic left knee pain. Review of Systems: Constitutional ROS: No change in weight, No weakness, No fatigue, and No fevers, sweats, or chills Eye ROS: No recent significant change in vision, No eye pain, redness, discharge, and No diplopia Ear ROS: No ear pain, No drainage, No tinnitus or vertigo, and No recent change in hearing Nose ROS: No history of frequent colds or sinusitis, No nasal stuffiness, and No significant epistaxis Mouth/Throat ROS: No bleeding gums, No thrush, or No sore throat Neck ROS: No lumps or masses, No swollen glands, No recent swelling in thyroid area, and No significant pain in neck Pulmonary ROS: No cough, sputum, or hemoptysis, No wheezing, No rales, No shortness of breath, and No recent change in breathing Cardiovascular ROS: No chest pain, No shortness of breath, No dyspnea on exertion, No orthopnea, Noparoxysmal nocturnal dyspnea, No edema, No palpitations, and No syncope Gastrointestinal ROS: No abdominal pain, No change in bowel habits, No significant heartburn, No significant change in appetite, No nausea, vomiting, diarrhea, or constipation, No hematemesis, No blood in stools or black tarry stools, No abdominal bloating or early satiety, and No dysphagia Genito-Urinary Female ROS: No dysuria, No frequency, No incontinence, and No urgency Musculoskeletal/Extremities ROS: No pain, redness or swelling on the joints, + L Knee pain Hematologic/Lymphatic ROS: No coagulation disorder, No anemia, No abnormal bleeding, No chills, No bruising, No HIV risk factors, No night sweats, No swollen nodes, No weight loss, and No history of transfusion Skin/Integumentary ROS: No edema, No rash, and No itching Neurologic ROS: Normal balance, No headaches, No seizures, and No weakness Psychiatric ROS: No depression and No anxiety Medical History Problem List: Moderate episode of recurrent major depressive disorder ([facility]) (2023) Insomnia secondary to depression with anxiety (10/05/2023) Generalized osteoarthritis (07/20/2023) Acute cholecystitis (03/26/2023) Food insecurity (10/31/2022) Current moderate episode of major depressive disorder without prior episode ([facility]) (10/17/2022) Stage 3 chronic kidney disease ([facility]) (10/17/2022) Body mass index (BMI) of 40.0 to 44.9 in adult ([facility]) (03/07/2022) Body mass index (BMI) of 45.0 to 49.9 in adult ([facility]) (11/01/2021) SEPIDEH (generalized anxiety disorder) (10/27/2021) Depression with anxiety (06/23/2021) Class 3 severe obesity due to excess calories with serious comorbidity and body mass index (BMI) of 50.0 to 59.9 in adult ([facility]) (06/23/2021) Gastro-esophageal reflux disease without esophagitis (12/31/2020) Major depressive disorder, single episode, unspecified (12/31/2020) Anxiety disorder due to medical condition (12/31/2020) Body mass index (BMI) of 50.0 to 59.9 in adult ([facility]) (03/03/2020) Multifocal PVCs (10/22/2019) Body mass index (BMI) of 45.0 to 49.9 in adult ([facility]) (03/27/2017) Migraine without aura, not intractable (02/02/2017) Body mass index (BMI) of 40.0-44.9 in adult ([facility]) (06/09/2016) IVANNA (obstructive sleep apnea) (06/09/2016) RLS (restless legs syndrome) (04/01/2016) Morbid obesity due to excess calories ([facility]) (03/03/2016) Adjustment disorder with depressed mood (03/03/2016) Mixed emotional features as adjustment reaction (03/03/2016) Vitamin D deficiency (06/23/2015) Meningioma ([facility]) (08/26/2014) Kidney disease, chronic, stage III (GFR 30-59 ml/min) ([facility]) (2014) HTN, goal below 130/80 HTN, goal below 140/90 Dyslipidemia, goal LDL below 130 Impaired fasting glucose Current Medications Multivitamin Adult Oral Tablet Chewable, Take by mouth. Sertraline HCl 100 MG Oral Tablet (Zoloft), 150 mg, Oral, Daily(AM) traZODone HCl 100 MG Oral Tablet (Desyrel), 100 mg, Oral, HS Atorvastatin Calcium 10 MG Oral Tablet (Lipitor), 10 mg, Oral, HS Famotidine 20 MG Oral Tablet (Pepcid), 20 mg, Oral, BID(AM/PM) Lisinopril 20 MG Oral Tablet (Prinivil), 20 mg, Oral, Daily(AM) LORazepam 0.5 MG Oral Tablet (Ativan), 0.5 mg, Oral, Daily PRN Meloxicam 15 MG Oral Tablet (Mobic), 15 mg, Oral, Daily(AM) Omeprazole 40 MG Oral Capsule Delayed Release (PriLOSEC), 40 mg, Oral, Daily(AM) rOPINIRole HCl 0.25 MG Oral Tablet (Requip), 0.25 mg, Oral, HS Naloxone HCl 4 MG/0.1ML Nasal Liquid (Narcan Nasal), Administer 1 spray into 1 nostril for suspected opioid overdose. Seek immediate medical attention. [email or web address] Ondansetron 4 MG Oral Tablet Disintegrating (Zofran), 4 mg, On Tongue, Q8H PRN CPAP, every night at bedtime. Allergies: Adhesive tape, Dilaudid [hydromorphone hcl], and Topamax [topiramate] Past Medical History: has a past medical history of Dyslipidemia, goal LDL below 130, HTN, goal below 140/90, Impaired fasting glucose, and IVANNA (obstructive sleep apnea). Past Surgical History: has a past surgical history that includes total hysterectomy (1992); delivery (1979); Colonoscopy, Diagnostic (Rectum) (01/05/2015); EGD, Flexible, Diagnostic (N/A, 09/03/2015); repair/graftachilles tendon (Bilateral, 1998); EGD, Flexible, Diagnostic (N/A, 03/04/2021); laparoscopy; cholecystectomy (N/A, 03/26/2023); and breast biopsy (Left, 03/2022). Social History: reports that she quit smoking about 29 years ago. Her smoking use included cigarettes. She started smoking about 32 years ago. She has a 3 pack-year smoking history. She has never used smokeless tobacco. She reports that she does not currently use alcohol. She reports that she does not use drugs. Family History: family history includes Dementia in her mother; Diabetes in her grandmother (maternal) and mother; Heart disease in her mother; Hypertension in her brother, mother, and sister; No Past Hx in her sister; Prostate cancer in her father; Stroke in her grandmother (maternal); Thyroid Disorder in her mother. Anesthesia History Type of Anesthesia: General Endotracheal and Caudal block Anesthesia reaction: No History of surgical complications: No Personal history of venous thromboembolic disease: No Physical Exam Vitals: 01/05/24 1406 Temp: 36.2 C (97.1 F) Pulse: 62 Resp: 16 SpO2: 98% BP: 130/56 BMI: 30.28 General: alert, healthy, and no distress Head: Normocephalic, No masses, lesions, tenderness or abnormalities Eye Exam: PERRL, extraocular movements intact, conjunctiva are pink and non- injected, sclera clear Ears: External ears normal, Canals clear, TM's Normal Nose: no mucosal erythema, no mucosal edema, no purulent discharge Oropharynx: no exudate, no erythema, lips, buccal mucosa, and tongue normal, and mucous membranes are moist Neck: supple, no adenopathy, no bruits, thyroid normal size, non-tender, without nodularity Heart: regular rate & rhythm, no murmur, and no gallops Lungs: chest symmetric with normal AP diameter, no chest deformities noted, no chest wall tenderness, lungs clear to auscultation Pulses: radial=2/4, posterior tibial=2/4 Abdomen: abdomen soft, non-tender, and normal bowel sounds Extremities: less than 2 second capillary refill, no edema, no clubbing, no cyanosis Neuro Exam: no focal motor/sensory deficits Gait: stiff Skin: skin color, texture, turgor are normal, no rashes Labs reviewed and are NOT significant. EKG by my review is NOT significant. Surgical Risk Scoring Revised Cardiac Risk Index (RCRI) High-risk type of surgery (examples include vascular and any open intraperitoneal or intrathoracic procedures): 0=No History of ischemic heart disease (history of myocardial infarction or positive exercise test, current compliant of chest pain considered to be secondary to myocardia ischemia, use of nitrate therapy, or ECG with pathological Q waves; do not count prior coronary revascularization procedure unless one of the other criteria for ischemic heart disease is present): 0=No History of heart failure: 0=No History of cerebrovascular disease: 0=No Diabetes mellitus requiring treatment with insulin: 0=No Preoperative serum creatinine >2.0 mg/dL (177 micromol/L): 0=No Pt has revised cardiac index score of: No Risk Factors- 0.4% (95% CI: 0.1-0.8) Screening for Obstructive Sleep Apnea (STOP-BANG) Do you Snore loudly? 0=No Do you often feel Tired, Fatigued, or Sleep? 0=No Has anyone Observed you Stop Breathing or Choking/Gasping during sleep? 0=No Do you have or are you being treated for High Blood Pressure? 1=Yes BMI over 35? 0=No Age older than 50? 1=Yes Neck size large? (For males - 17 inches or larger, For females - 16 inches or larger) 0=No Male? 0=No Score 0-2:low risk IVANNA, 3-4: intermediate risk of IVANNA, 5-8: high risk IVANNA 2 Hx of IVANNA, but lost weight and no longer uses CPAP. Assessment and Plan Preoperative general physical examination (Primary) Primary osteoarthritis of one knee, left - Patient is cleared to proceed with surgery. Follow Up: Return in about 6 months (around 07/07/2024). Functional Assessment They are able to walk up a flight of stairs, walk two blocks at a moderate pace, do heavy house work like vacuuming, and grocery shop. The patient's functional status is good (greater than 4 METS). 1 MET: 4 METs: 4-10 METs: Can take care of self, such as eat, dress or use the toilet. Can walk to block or go up a flight of steps. Can do heavy house work. Surgical Risk Assessment Patient is low medical risk for the listed procedure. Medication adjustments: None Additional consults or testing: No Anny Dixon PA-C documented in this encounter Nursing Notes * Petty Dietrich MED ASSIST - 01/05/2024 2:05 PM EDT Chief Complaint Patient presents with pre-op exam Pt is here for a pre-op , getting a total knee replacement on 01/07, pt has no concerns about the procedure. documented in this encounter Plan of Treatment Upcoming Encounters Date Type Department Care Team (Late st Contact Info) Description 01/19/2024 10:00 AM EDT Office Visit Ophthalmology, [place] [facility] [place] [address] Anthony Navarro DO [facility] [place] [address] 04/15/2024 4:15 PM EDT Appointment Rad[facility], [facility] [address] [facility] [phone] 07/08/2024 2:20 PM EST Office Visit [place] [address] [address] [place] [address] [address] PA-C [facility] [address] [place] [address] Scheduled Procedures Name Priority Associated Diagnoses Date/Ti me COLONOSCOPY FLEXIBLE PROXIMA L DIAGNOSTIC Recall Special screening for malignant neoplasms, colon Health Maintenance Due Date Last Done Comments Cologuard 09/13/2004 Fecal Occult Blood Test 09/13/2004 Sigmoidoscopy 09/13/2004 Influenza Vaccine (FLU shot) (#1) 2024 04/10/2023, 04/02/2022, 03/04/2021, Additional history exists Mammogram 04/13/2024 04/13/2023, 10/2021, 03/11/2022, Additional history exists Depression Monitoring 10/04/2024 10/05/2023 GFR 01/02/2025 01/03/2024, 06/27, 05/16/2023, Additional history exists Colonoscopy 01/05/2025 01/05/2015, 01/05/2015 Colorectal Cancer Screening 01/05/2025 Lipid Panel 02/04/2025 02/05/2020, 06/01/2017, 12/29/2014, Additional history exists Albumin/Creatinine Ratio 07/20/2026 024, 03/03/2022, 12/01/2016 Diabetes Screening 01/02/2027 01/03/2024, 0 07/20/2023, 05/16/2023, Additional history exists [...] this encounter Medical Devices Implanted Type Area Cook Enchilada Device Identifier Shelf Expiration Date Model / Serial / Lot Breast- 2 Implanted:Qty: 1 on 04/06/2022 by Francisco Velez MD Breast [employer] 11/29/2022 / / [id number] Description:stainless steel biopsy site marker left breast documented as of this encounter Visit Diagnoses Diagnosis Preoperative general physical examination- Primary Other specified pre-operative examination Primary osteoarthritis of one knee, left documented in this encounter Care Teams Infantry Senior Sergeant Relationship Specialty Start Date End Date Anny Dixon PA-C [address] [facility] [address] [facility] [place] [address] PCP - General Physician Communications Consultant 09/25/20 documented as of this encounter
--- OUTSIDE RECORDS SUMMARY | 2024-01-08 09:01 | External Medical Summary | Summary of Care ---
Author Name Unknown Organization [facility] Address [address] [place] [address] Phone [phone] Care Team Providers Care It Consultant Name Role Phone Anny Dixon PA-C Primary Care Provider +1- [phone] Encounter Details Date Type Department Care Team (Late st Contact Info) Description 01/05/2024 Orders Only [place] [address] [place], [place] [phone] Anny Dixon PA-C [address] [place], [place] [phone] Allergies Active Allergy Reactions Criticality Noted Date [...] suspected opioid overdose. Seek immediate medical attention. [email or web address] 1 Each 3 05/16/2023 Active Atorvastatin Calcium [...] Description 01/05/2024 2:00 PM EDT Office Visit [address] [place] [address] Anny Dixon PA-C [address] [place] [address] [place] [address] 01/19/2024 10:00 AM EDT Office Visit Ophthalmology, [place] [address] Anthony Navarro DO [place] [address] 04/15/2024 4:15 PM EDT Appointment Radiology, [address] [place] [phone] Scheduled Procedures Name Priority Associated Diagnoses Date/Ti [...] this encounter Medical Devices Implanted Type Area Parts Manager Device Identifier Shelf Expiration Date Model / Serial / Lot Breast- 2 Implanted:Qty: 1 on 04/06/2022 by Francisco Velez MD Breast [employer] 11/29/2022 / / [id number] Description:stainless steel biopsy site marker left breast documented as of this encounter Procedures Procedure Name Priority Date/Time Associated Diagnosis Comments CHEMISTRY-OUTSIDE Routine 01/03/2024 documented in this encounter Results * CHEMISTRY-OUTSIDE (01/03/2024) Not all results display below - see scan for full detail OUTSIDE LAB (SEE SCANNED REPORT) Comment:SCAN INCLUDES: CBCD, COAG, BMP, ALB, UA CREATININE-OUTSID E LAB 0.61 0.6 - 1.2 MG/DL OUTSIDE LAB (SEE SCANNED REPORT) EGFR-OUTSIDE LAB 95.8 ML/MIN/1. 73M2 OUTSIDE LAB (SEE SCANNED REPORT) POTASSIUM-OUTSIDE LAB 4.6 3.5 - 5.1 MMOL/L OUTSIDE LAB (SEE SCANNED REPORT) GLUCOSE-OUTSIDE LAB 83 70 - 99 MG/DL OUTSIDE LAB (SEE SCANNED REPORT) HOURS FASTING OUTSID E LAB (SEE SCANNED REPORT) TRIGLYCERIDES-OUT SIDE LAB OUTSIDE LAB (SEE SCANNED REPORT) CHOLESTEROL-OUTSI DE LAB OUTSIDE LAB (SEE SCANNED REPORT) HDL-OUTSIDE LAB OUTS [facility] LAB (SEE SCANNED REPORT) CHOL/HDL RATIO-OUTSIDE LAB OUTSIDE LA B (SEE SCANNED REPORT) LDL (CALCULATED)-OUTS [facility] LAB OUTSIDE LAB (SEE SCANNED REPORT) LDL (DIRECT MEASURE)-OUTSIDE LAB OUTSIDE LAB (SEE SCANNED REPORT) HEMOGLOBIN, F6M-SGZUVHA LAB OUTSIDE LAB (SEE SCANNED REPORT) PHOSPHORUS-OUTSID E LAB OUTSIDE LAB (SEE SCANNED REPORT) PTH-OUTSIDE LAB OUTS [facility] LAB (SEE SCANNED REPORT) MICROALBUMIN RATIO-OUTSIDE LAB OUTSIDE LA B (SEE SCANNED REPORT) PROTEIN, UA-OUTSIDE LAB NEGATIVE OUTSIDE LAB (SEE SCANNED REPORT) HGB 13.1 12 - 16 G/DL OUTSIDE LAB (SEE SCANNED REPORT) 01/03/2024 Vernon Eddy MD LABORATORY OUTSIDE LAB (SEE SCANNED REPORT) documented in this encounter Care Teams It Consultant Relationship Specialty Start Date End Date Anny Dixon PA-C [address] [place] [id number] [place] [address] PCP - General Physician Inspector Aluminum Boat 09/25/20 documented as of this encounter
--- OUTSIDE RECORDS SUMMARY | 2024-01-08 09:01 | External Medical Summary | Summary of Care ---
Author Name Unknown Organization [facility] Address [address] [place] [address] Phone [phone] Care Team Providers Care Motion Picture Equipment Machinist Name Role Phone Anny Dixon PA-C Primary Care Provider +1- [phone] Encounter Details Date Type Department Care Team (Late st Contact Info) Description 01/05/2024 Orders Only [place] [address] [place], [place] [phone] Anny Dixon PA-C [address] [place], [place] [phone] Allergies Active Allergy Reactions Criticality Noted Date [...] suspected opioid overdose. Seek immediate medical attention. [email or web address] 1 Each 3 05/16/2023 Active Atorvastatin Calcium [...] Description 01/05/2024 2:00 PM EDT Office Visit [address] [place] [address] Anny Dixon PA-C [address] [place] [address] [place] [address] 01/19/2024 10:00 AM EDT Office Visit Ophthalmology, [place] [address] Anthony Navarro DO [place] [address] 04/15/2024 4:15 PM EDT Appointment Radiology, [address] [place] [phone] Scheduled Procedures Name Priority Associated Diagnoses Date/Ti [...] this encounter Medical Devices Implanted Type Area Septic Tank Installer Device Identifier Shelf Expiration Date Model / Serial / Lot Breast- 2 Implanted:Qty: 1 on 04/06/2022 by Francisco Velez MD Breast [employer] 11/29/2022 / / [id number] Description:stainless steel biopsy site marker left breast documented as of this encounter Procedures Procedure Name Priority Date/Time Associated Diagnosis Comments XR CHEST 2 VIEWS Routine 01/03/2024 documented in this encounter Results * XR CHEST 2 VIEWS (01/03/2024) Anatomical Region Laterality Modality Chest Other 01/03/2024 Vernon Eddy MD RADIOLOGY (RAD GEN ERAL) documented in this encounter Care Teams Motion Picture Equipment Machinist Relationship Specialty Start Date End Date Anny Dixon PAMelyC [address] [facility] [address] [place] [address] PCP - General Physician Instructional Technology Director 09/25/20 documented as of this encounter
[2024-01-08] MEDS ORDERED: LIDOCAINE 2% 2 ML VIAL/AMP(20MG/ML) INFIL ONE (09:13)
[2024-01-08] MEDS ORDERED: ONDANSETRON INJ 2 MG/ML 2 ML VIAL ONE (09:13)
[2024-01-08] MEDS ORDERED: PROPOFOL IV EMULSION 10 MG/ML 20 ML VIAL IV ONE ×2 (09:13→14:21)
[2024-01-08] MEDS: dexAMETHasone 4 MG TAB PO SCH (09:14)
[2024-01-08] MEDS: GABAPENTIN 600 MG DOSE PO SCH (09:14)
[2024-01-08] MEDS: CeleBREX 200 MG CAP PO SCH (09:14)
[2024-01-08] MEDS ORDERED: MIDAZOLAM HCL 1 MG/ML 2ML VIAL ONE (09:14)
[2024-01-08] MEDS: LR 60ML/HR IV SCH (09:15)
[2024-01-08] MEDS: METOCLOPRAMIDE HCL 10 MG TABLET PO SCH (09:15)
[2024-01-08] MEDS: ACETAMINOPHEN 500 MG TAB PO SCH ×2 (09:15→21:49)
[2024-01-08] MEDS: FAMOTIDINE 20 MG TAB PO SCH ×2 (09:15→20:08)
[2024-01-08] MEDS: LR 500ML BOLUS, THEN 15ML/HR IV SCH (09:15)
--- NOTE | 2024-01-08 09:42 | History & Physical Bridge Note ---
Date of Service January 08, 2024 History & Physical Bridge Note I have examined the patient, reviewed the History & Physical and in the interval since the performance of the History & Physical I have noted the following changes of clinical significance: no changes noted
[2024-01-08] MEDS ORDERED: fentaNYL citrate PF 100 MCG/2 ML VIAL IV PRN (11:32)
[2024-01-08] MEDS ORDERED: ATROPINE SULFATE 0.1 MG/ML 10ML SYR IV PRN (11:32)
[2024-01-08] MEDS ORDERED: ePHEDrine sulfate 50 MG/ML AMP IV PRN (11:32)
[2024-01-08] MEDS ORDERED: ONDANSETRON INJ 2 MG/ML 2 ML VIAL IV PRN ×2 (11:32→16:01)
[2024-01-08] MEDS ORDERED: KETOROLAC 30 MG/ML VIAL IV PRN (11:32)
[2024-01-08] MEDS: TRANEXAMIC ACID 1,000 MG **IV Pre-op IV SCH (11:52)
[2024-01-08] MEDS: ceFAZolin 2000MG 2,000 MG/15 ML SYR IV SCH ×2 (12:07→19:55)
[2024-01-08] MEDS: HCL INFIL SCH (13:18)
[2024-01-08] MEDS: SODIUM CHLORIDE INFIL SCH (13:18)
[2024-01-08] MEDS: KETOROLAC INFIL SCH (13:18)
[2024-01-08] MEDS: ORTHO JOINT ANESTHETIC ONE (13:18)
[2024-01-08] MEDS: ROPIVACAINE 0.5% INFIL SCH (13:18)
[2024-01-08] MEDS: TRANEXAMIC ACID 1,000 MG **IV Intra-op IV SCH (14:16)
--- NOTE | 2024-01-08 14:34 | Operative Report ---
Post Operative Report Pre & Post Diagnosis Operation Date: 01/08/24 11:15 Pre-Op Diagnosis: Left Knee Osteoarthritis Post-Op Diagnosis: Left Knee Osteoarthritis I identified the patient and participated in the time-out.: Yes Procedure Operation Date: 01/08/24 11:15 Actual Procedures p Left Total Knee Arthroplasty(Left), lateral release- Vernon Eddy MD Surgeon Vernon Eddy MD Bartacker Lamont TOBIN Estimated Blood Loss 10 Findings Consistent with Post-Op Diagnosis Specimens Bone cuts Drains 2 Hemovac Anesthesia Type MAC Spinal Regional Complications none Disposition Disposition: Recovery Room Indications 63 a female with chronic left knee osteoarthritis status post successful right knee replacement now wants proceed with left knee replacement Description of Procedure Patient taken to the operating room the size under spinal MAC regional block anesthesia. Patient was placed supine on the operating table. A pneumatic tourniquet was placed about the left moderately obese upper thigh. The left lower extremity was prepped and draped in sterile fashion. Knee exam demonstrated varus knee small effusion no instability range of motion 0 to 125 degrees. The leg was elevated exsanguinated with an Esmarch bandage and pneumatic tourniquet was raised to 325 millimeters of mercury. Skin incised sharply in longitudinal fashion. Subcutaneous flaps elevated. Incision was made through the medial retinaculum extending up in the mid third of the quadriceps tendon and down to the medial tibial tubercle. Intra-articular findings demonstrated tricompartmental osteoarthritis. [id number] medial compartment with large medial osteophytes and posterior medial osteophytes.. The Myworldwall triathlon total knee arthroplasty system was used. To expose the knee the infrapatellar fat pad was resected. The meniscal remnants and cruciate ligaments were resected. The anterior fat pad over the femur in the area of the location of the anterior flange of the femoral component was resected. The lateral synovial bands were released. The femur was exposed. An intramedullary drill hole was made into the canal. A guide reema was placed. Distal femoral cutting guide was adjusted to resect a 5 degree valgus cut with 8 millimeters distal femur resected. Bone quality was hard. The knee was extended and a subperiosteal peel lateral release was performed around the patella. Patella width was measured and width was reproduced using a freehand cut technique and a 31 patella component. The 3 drill holes were made and the excess lateral facet was beveled off to prevent any impingement. Attention was taken back to the femur which was exposed with retractors and the femoral sizing guide was pinned in position. The drill holes were placed in 3 of external rotation to match the epicondylar axis. The femur sized for a 3 component. The 4-in-1 cutting block was placed and then the anterior posterior and chamfer cuts are made. The tibia was then subluxed. The external tibial cutting guide was adjusted to make a perpendicular cut to the long axis of the tibia below the most deficient bone loss side. Cut was adjusted for slope. A lamina stone spreader operator was used and the flexion extension gaps were balanced. Minor medial posterior medial releases were required. All posterior osteophytes removed. All meniscal remnants were resected. The tibia exposed and the trial tibial component size 3 was externally rotated in line with the tibial tubercle mid third and pinned in position. It was noted that patient did have a significant increased Q angle and to maximally externally rotated tibial component there was minor posterior lateral overhang. The punch for stem was used. Bone quality was very hard. T he notch cutting device was centered appropriately and the femoral notch cut was made. The femoral trial was inserted. Trial tibial inserts were placed and size 13 gave balanced ligaments through flexion and extension. Patella tracking was assessed. The patella tracked with some lateral tilt and slightly laterally I had to do a lateral release to correct patellar tracking and I did preserve th e synovial attachment.. The trial components were then removed and the orthomix anesthetic cocktail was injected per protocol. The knee was then copiously irrigated with pulsatile lavage saline solution. Final components were then cemented with Refobacin cement. Xperience irrigation placed over metal compoments prior to polyethylene insertion. Final components were 3 left posterior stabilized Casey triathlon femoral component, 3 universal tibial baseplate with a 50 mm x 12 mm cemented stem extension with a 13 mm left posterior stabilized X.3 polyethylene tibial bearing insert and a X.3 p olyethylene symmetrical patella 31 x 9 mm component. After the cement cured further pulsatile lavage irrigation was then performed with Xperience and 2 Hemovac drains were brought out laterally. The quadriceps tendon and medial retinaculum were closed with #2 FiberWire [id number] sutures around the medial retinaculum distal quad tendon area 1 over the polyethylene level of the tibial polyethylene and 1 suture at the apex of the split in the quad tendon. Running locking 0 STRATAFIX suture was then used to close quadriceps tendon and medial retinaculum and the distal incision closed with interrupted #1 Vicryl sutures [id number]. Knee was taken through a full range of motion and repair was secure. Knee range of motion was 0 through 130 degrees. The subcutaneous tissues were closed with 2-0 Vicryl sutures. Skin was closed with surgical roseline. Standard sterile dressing was applied including Fortino wrap from the foot to the thigh.. The patient tolerated the procedure well. Lamont TOBIN was my physician speech therapy assistant who participated as digital sales assistant and was involved in all aspects of the procedure including patient positioning prepping and draping,leg positioning ,soft tissue retraction and instrument management and participated in the closing and [] and will participate in postoperative care of the patient. The patient tolerated the procedure well. I attest to the content of the Intraoperative Record and any orders documented therein. Any exceptions are noted below.
--- NOTE | 2024-01-08 15:43 | Anesthesiology Progress Note ---
Date of Service January 08, 2024 Anesthesia Post Procedure Vital Signs Vital Signs: Temp Pulse Pulse Resp BP Pulse Ox O2 Del Method 01/08/24 15:30 36.4 C L 69 16 143/80 H 95 Room Air 01/08/24 15:20 65 16 150/78 H 97 Oxymask 01/08/24 15:10 78 15 154/88 H 96 Oxymask 01/08/24 15:03 36.0 C L 81 16 150/92 H 97 Oxymask 01/08/24 08:55 36.9 C 57 L 20 186/89 H 97 Room Air O2 Flow Rate 01/08/24 15:30 01/08/24 15:20 4 01/08/24 15:10 4 01/08/24 15:03 6 01/08/24 08:55 Transfer of Care Handoff Completed per policy Notes Mental Status: alert / awake / arousable Patient Amnestic to Procedure: Yes Nausea / Vomiting: adequately controlled Pain: adequately controlled Airway Patency, RR, SpO2: stable & adequate BP & HR: stable & adequate Hydration State: stable & adequate Anesthetic Complications: no major complications apparent and Pt Satisfied with anesthetic care
--- NOTE | 2024-01-08 15:44 | Anesthesiology Progress Note ---
Date of Service January 08, 2024 Anesthesia Post Procedure Vital Signs Vital Signs: Temp Pulse Pulse Resp BP Pulse Ox O2 Del Method 01/08/24 15:40 64 16 137/77 95 Room Air 01/08/24 15:30 36.4 C L 69 16 143/80 H 95 Room Air 01/08/24 15:20 65 16 150/78 H 97 Oxymask 01/08/24 15:10 78 15 154/88 H 96 Oxymask 01/08/24 15:03 36.0 C L 81 16 150/92 H 97 Oxymask 01/08/24 08:55 36.9 C 57 L 20 186/89 H 97 Room Air O2 Flow Rate 01/08/24 15:40 01/08/24 15:30 01/08/24 15:20 4 01/08/24 15:10 4 01/08/24 15:03 6 01/08/24 08:55 Transfer of Care Handoff Completed per policy Notes Mental Status: alert / awake / arousable Patient Amnestic to Procedure: Yes Nausea / Vomiting: adequately controlled Pain: adequately controlled Airway Patency, RR, SpO2: stable & adequate BP & HR: stable & adequate Hydration State: stable & adequate Neuraxial Anesthesia: was administered and sensory block is resolving Anesthetic Complications: no major complications apparent and Pt Satisfied with anesthetic care
[2024-01-08] MEDS ORDERED: NALOXONE HCL 0.4 MG/1 ML VIAL/CARP IV PRN (16:01)
[2024-01-08] MEDS ORDERED: bisacodyL 10 MG SUPP PR PRN (16:01)
[2024-01-08] MEDS ORDERED: ALUMINUM/MAGNESIUM SUSP 30 ML UDC PO PRN (16:01)
[2024-01-08] MEDS ORDERED: HYDROmorphone INJ 0.5 MG/0.5 ML SYR IV PRN (16:01)
[2024-01-08] MEDS ORDERED: traZODone HCL 100 MG TAB PO PRN (16:01)
[2024-01-08] MEDS ORDERED: MAGNESIUM HYDROXIDE SUSP 30 ML UDC PO PRN (16:01)
[2024-01-08] MEDS ORDERED: diphenhydrAMINE Capsule 25 MG CAP PO PRN (16:01)
[2024-01-08] MEDS ORDERED: METOCLOPRAMIDE HCL INJ 5 MG/ML 2 ML VIAL IV PRN (16:01)
[2024-01-08] MEDS: SODIUM CHLORIDE 0.9% 1,000 ML IV SCH (16:15)
[2024-01-08] MEDS: oxyCODONE HCL IR 5 MG TAB (IMMEDIATE RELEASE) PO PRN (16:25)
[2024-01-08] MEDS: KETOROLAC TROMETHAMINE 15 MG/ML VIAL IV PRN (16:25)
--- NOTE | 2024-01-08 17:40 | Consultation ---
Date of Consultation January 08, 2024 Assessment & Plan (1) Osteoarthritis of left knee: Plan OA left knee s/p Left knee TKA s/p left knee tka 01/07, monitor labs for Ac blood loss anemia c/w pain mx, bowel regimen. DVT Px w/ aspirin bid per ortho labs in am. other medical conditions: hld, htn, gerd, rls, depression - continue home meds. DVT Px: asp bid, scds. full code. History of Present Illness Requesting Physician: Vernon Eddy MD Reason for Consultation: medical mx Attending Physician: Vernon Eddy MD History of Present Illness 63-year-old lady with PMH of HLD, IVANNA, HTN, vitamin D deficiency, GERD, RLS, generalized osteoarthritis, meningioma, moderate episode of recurrent major depressive disorder was seen and evaluated at bedside as a medical management consult status post left total knee arthroplasty. Patient is doing well, reports left knee pain under control with pain medication. Patient denies any febrile illness in the recent past, denies sore throat/cough/chest pain/palpitation. Reports feeling better. He is tolerating diet, moving gas, has normal bowel. Allergies Allergy/AdvReac Type Severity Reaction Status Date / Time hydromorphone Allergy Mild itching Verified 01/08/24 08:56 topiramate Allergy Mild Itching Verified 01/08/24 08:56 adhesive Allergy rash and Verified 01/08/24 08:56 blisters Home Medications Medication Instructions Recorded Confirmed Type atorvastatin 10 mg tablet 10 mg PO HS 10/28/22 01/08/24 History famotidine 20 mg tablet 20 mg PO BID 10/28/22 01/08/24 History lisinopril 20 mg tablet 20 mg PO QAM 10/28/22 01/08/24 History meloxicam 15 mg tablet 15 mg PO QAM 10/28/22 01/08/24 History omeprazole 40 mg capsule,delayed 40 mg PO QAM 10/28/22 01/08/24 History release ropinirole 0.25 mg tablet 0.25 mg PO HS PRN Restless Leg(S) 10/28/22 01/08/24 History sertraline 100 mg tablet 150 mg PO QAM 10/28/22 01/08/24 History trazodone 100 mg tablet 100 mg PO HS PRN Sleep 12/26/23 01/08/24 History Patient History Medical History History of anxiety Hyperlipidemia Hypertension controlled, stable per pt GERD (gastroesophageal reflux disease) controlled, stable per pt Multiple fractures of fingers (~2022) Osteoarthritis Hiatal hernia Restless leg syndrome Sleep apnea no longer needs CPAP due to weight loss per pt Surgical History History of total right knee replacement Hx laparoscopic cholecystectomy (~03/2023) Nausea and vomiting after administration of anesthetic agent denies needing scop patch H/O Achilles tendon repair bilat. History of esophagogastroduodenoscopy (EGD) History of colonoscopy History of partial hysterectomy History of section Social History Smoking Status: Former smoker Smoking End Date: 1994; Second Hand Exposure: No; Do You Dip or Chew Tobacco: No; Tobacco Cessation Education Requested by Patient: No Hx Alcohol Use: Yes Hx Substance Use: No Preferred Language: Arabic Communication Ability: Effective Behavioral Pediatrician Required: No Beliefs That Will Affect Care: None Current Living Situation: Spouse Other Information That Helps Us Care for You: No Feels Safe at Home: Yes Safety Concerns: Feels Safe At This Time Assistive Devices: Glasses Review of Systems Review of Systems: Negative otherwise mentioned in the HPI Physical Exam Physical Exam: GENERAL: Alert and oriented x3. NAD, on RA. HEENT: No pallor, no icterus. Pupils equal, round and reactive to light. Oral mucosa moist. NECK: No JVD, no neck masses. HEART: S1 and S2 heard. Regular rate and rhythm. No murmur, no gallop. RESPIRATORY SYSTEM: Normal AP diameter. No accessory muscle use. No wheezing, no crackles. ABDOMEN: Soft, bowel sounds present, nontender, no distention. CENTRAL NERVOUS SYSTEM: No facial droop. Speech is clear. Obeys simple com mands. Moves extremities. EXTREMITIES: No edema, no erythema seen. Left knee dress c/d/i. Drain in place, minimal ss collection noted. Results & Data Vital Signs (Past 12 Hours) Vital Signs Temp Pulse Pulse Resp BP Pulse Ox O2 Del Method 01/08/24 17:09 37.1 C 68 18 134/82 97 Room Air 01/08/24 16:30 36.4 C L 58 L 14 145/71 H 95 Room Air 01/08/24 16:15 36.3 C L 58 L 14 122/62 94 Room Air 01/08/24 16:01 36.3 C L 62 14 130/73 96 Room Air 01/08/24 16:00 36.3 C L 62 14 130/73 96 Room Air 01/08/24 15:50 63 16 147/72 H 95 Room Air 01/08/24 15:40 64 16 137/77 95 Room Air 01/08/24 15:30 36.4 C L 69 16 143/80 H 95 Room Air 01/08/24 15:20 65 16 150/78 H 97 Oxymask 01/08/24 15:10 78 15 154/88 H 96 Oxymask 01/08/24 15:03 36.0 C L 81 16 150/92 H 97 Oxymask 01/08/24 08:55 36.9 C 57 L 20 186/89 H 97 Room Air O2 Flow Rate 01/08/24 17:09 01/08/24 16:30 01/08/24 16:15 01/08/24 16:01 01/08/24 16:00 01/08/24 15:50 01/08/24 15:40 01/08/24 15:30 01/08/24 15:20 4 01/08/24 15:10 4 01/08/24 15:03 6 01/08/24 08:55 (1) Osteoarthritis of left knee Osteoarthritis type: primary Qualified Code(s): M17.12 - Unilateral primary osteoarthritis, left knee
--- NOTE | 2024-01-08 19:02 | XRay Report ---
TWO VIEWS LEFT KNEE CLINICAL HISTORY: Postoperative examination. FINDINGS: AP and crosstable lateral portable views of the left knee are obtained. A left knee arthrop lasty is in near anatomic alignment. There has been undersurface remodeling of the patella. No acute fracture is seen. There are expected postoperative changes around the knee including skin clips, a hall rgical drain, soft tissue edema, and subcutaneous gas. IMPRESSION: Expected postoperative changes status post left knee arthroplasty. No acute fracture is s een. ACT 112: Negative or not required by law. Electronically signed by: Carlos Valenzuela M.D. 01/08/2024 7:01 PM
[2024-01-08] MEDS: TRANEXAMIC ACID / 0.7% NACL 1,000 MG/100 ML BAG IV SCH (20:05)
[2024-01-08] MEDS: ASPIRIN 81 MG ECTAB PO SCH (20:07)
[2024-01-08] MEDS: SENNA 8.6 MG TAB PO SCH (20:08)
[2024-01-08] MEDS: ATORVASTATIN 10 MG TAB PO SCH (20:08)
[2024-01-08] MEDS: DOCUSATE SODIUM 100 MG CAP PO SCH (20:09)
[2024-01-08] MEDS: rOPINIRole HCL 0.25 MG TABLET PO PRN (20:10)
[2024-01-09 07:57] LABS: Hematocrit (blood only) 30.6 % (37.0-47.0); Hemoglobin 10.1 g/dl (12.0-16.0); Mean Corpuscular Hemoglobin 30.6 pg (25.0-34.0); Mean Corpuscular Volume 92.7 fL (80.0-100.0); Mean Platelet Volume 12.1 fL (9.4-12.4); Platelet Count 156 K/uL (130-400); RDW Coefficient of Variation 12.3 % (11.5-14.5); RDW Standard Deviation 41.8 fL (36.4-46.3); White Blood Count 9.01 K/ul (4.8-10.8)
[2024-01-09 08:10] LABS: BUN Creatinine Ratio 29.3 (10-20); Calcium 8.1 mg/dl (8.6-10.3); Creatinine Clr Calc Pharmacy 72.7 ml/min; Est GFR (African American) 97.6 ml/min; Est GFR (Non-African American) 84.2 ml/min; Potassium 3.6 mmol/L (3.5-5.1)
--- NOTE | 2024-01-09 08:17 | Orthopedic Progress Note ---
Date of Service January 09, 2024 Assessment & Plan (1) Status post left knee replacement: Plan: Postop day 1 left knee replacement. Patient having 100 cc per shift drainage still so recommend staying hospital another day due to the drainage and monitor that condition and discharge home tomorrow. Admission and Anticipated Discharge Date Admission Date: January 08, 2024 Subjective Having little bit of pain but managed by oral pain medicine. Review of Systems Review of Systems: Feels well no shortness of breath chest pain no complaints Physical Exam Physical Exam: Dressing dry and intact. Distal circulation sensorimotor exam all intact. Patient has independent straight leg raise Results & Data Vital Signs (Past 12 Hours) Vital Signs Temp Pulse Resp BP Pulse Ox O2 Del Method 01/09/24 08:07 37.1 C 63 16 123/74 95 Room Air 01/09/24 04:00 36.7 C 50 L 18 119/62 96 Room Air 01/09/24 00:00 36.6 C 57 L 19 128/68 94 Room Air 01/08/24 20:32 36.4 C L 53 L 19 153/72 H 95 Room Air Diagnostic Findings Radiographs good alignment left knee replacement.
[2024-01-09] MEDS: lisinopril 20 MG TAB PO SCH (09:19)
[2024-01-09] MEDS: PANTOprazole 40 MG TAB PO SCH (09:20)
[2024-01-09] MEDS: SERTRALINE HCL 50 MG TABLET PO SCH (09:20)
[2024-01-09] MEDS: MULTIVITAMIN TAB PO SCH (09:20)
--- NOTE | 2024-01-09 14:05 | Hospitalist Progress Note ---
Date of Service January 09, 2024 Assessment & Plan (1) Osteoarthritis of left knee: Plan OA left knee s/p Left knee TKA s/p left knee tka 01/07, monitor labs for Ac blood loss anemia c/w pain mx, bowel regimen. DVT Px w/ aspirin bid per ortho labs in am. Acute blood loss anemia: Hb 13.1 preop, 10.1 today. Likely perioperative blood loss in the setting of dilutional component. Monitor labs in AM. other medical conditions: hld, htn, gerd, rls, depression - continue home meds. DVT Px: asp bid, scds. full code. Admission and Anticipated Discharge Date Admission Date: January 08, 2024 Subjective Patient was seen and examined at bedside. Patient was lying in bed, on room air, NAD, resting comfortably, reports left knee pain under control with pain medications. Patient reports eating okay, hasnot moved bowel, is moving gas. Physical Exam Physical Exam: GENERAL: Alert and oriented x3. NAD, on RA. HEENT: No pallor, no icterus. Pupils equal, round and reactive to light. Oral mucosa moist. NECK: No JVD, no neck masses. HEART: S1 and S2 heard. Regular rate and rhythm. No murmur, no gallop. RESPIRATORY SYSTEM: Normal AP diameter. No accessory muscle use. No wheezing, no crackles. ABDOMEN: Soft, bowel sounds present, nontender, no distention. CENTRAL NERVOUS SYSTEM: No facial droop. Speech is clear. Obeys simple commands. Moves extremities. EXTREMITIES: No edema, no erythema seen. Left knee dress c/d/i. Drain in place, minimal ss collection noted. Results & Data Results & Data Vital Signs (Past 12 Hours) Vital Signs Temp Pulse Resp BP Pulse Ox O2 Del Method 01/09/24 12:00 36.9 C 56 L 14 124/69 95 Room Air 01/09/24 08:07 37.1 C 63 16 123/74 95 Room Air 01/09/24 04:00 36.7 C 50 L 18 119/62 96 Room Air (1) Osteoarthritis of left knee Osteoarthritis type: primary Qualified Code(s): M17.12 - Unilateral primary osteoarthritis, left knee
[2024-01-09] MEDS: rOPINIRole HCL 0.25 MG TABLET PO PRN (15:25)
[2024-01-09] MEDS: MoRPHine SULFATE 4 MG/ML 1 ML CARP\\VIAL IV PRN (20:53)
[2024-01-10] MEDS: KETOROLAC TROMETHAMINE 15 MG/ML VIAL IV PRN (05:45)
[2024-01-10 06:48] LABS: Hematocrit (blood only) 29.5 % (37.0-47.0); Hemoglobin 9.7 g/dl (12.0-16.0); Mean Corpuscular Hemoglobin 30.5 pg (25.0-34.0); Mean Corpuscular Hgb Conc 32.9 g/dL (32.0-36.0); Mean Corpuscular Volume 92.8 fL (80.0-100.0); Mean Platelet Volume 11.7 fL (9.4-12.4); Platelet Count 117 K/uL (130-400); RDW Coefficient of Variation 12.5 % (11.5-14.5); RDW Standard Deviation 42.3 fL (36.4-46.3); Red Blood Count 3.18 M/uL (4.20-5.40); White Blood Count 5.99 K/ul (4.8-10.8)
--- NOTE | 2024-01-10 10:40 | Orthopedic Progress Note ---
Date of Service January 10, 2024 Assessment & Plan (1) Status post left knee replacement: Plan: Postop day 2 s/p left knee replacement. The dressing on the left knee will be changed today. The Hemovac will be removed today with little drainage in the Hemovac over the past 12 hours. Continue PT/OT. Pain controlas written. Discharge planningplan for discharge home today and patient will start outpatient physical therapy later this week. Admission and Anticipated Discharge Date Admission Date: January 08, 2024 Subjective Patient states the left knee is painful today but overall controlled. No new complaints today. States her plan is to go home with outpatient physical therapy. Physical Exam Constitutional: WD/WN, vitals as above no acute distress (Sitting up comfortably in bed.) Musculoskeletal: Knee: + surgical incision (Dressing is C/D/I) and + surgical drain present (50 cc at 2240 last evening. Little drainage in canister today at 1030); no deformity, no skin erythema and no ecchymosis Results & Data Vital Signs (Past 12 Hours) Vital Signs Temp Pulse Resp BP Pulse Ox O2 Del Method 01/10/24 07:52 36.7 C 60 22 130/68 92 Room Air Laboratory Results Laboratory Tests 01/10/24 06:23 WBC 5.99 Hgb 9.7 L Hct 29.5 L Plt Count 117 L
--- NOTE | 2024-01-10 13:16 | Hospitalist Progress Note ---
Date of Service January 10, 2024 Assessment & Plan (1) Osteoarthritis of left knee: Plan OA left knee s/p Left knee TKA s/p left knee tka 01/07, monitor labs for Ac blood loss anemia c/w pain mx, bowel regimen. DVT Px w/ aspirin bid per ortho labs in am. Acute blood loss anemia: Hb 13.1 preop, 10.1 today. Likely perioperative blood loss in the setting of dilutional component. Monitor labs in AM. other medical conditions: hld, htn, gerd, rls, depression - continue home meds. DVT Px: asp bid, scds. full code. Admission and Anticipated Discharge Date Admission Date: January 08, 2024 Subjective Patient was seen and examined at bedside. Patient was lying in bed, on room air, NAD, resting comfortably, reports left knee pain under control with pain medications. Patient reports eating okay, hasnot moved bowel, is moving gas. pt is hemodynamically stable and would like to go home. Physical Exam Physical Exam: GENERAL: Alert and oriented x3. NAD, on RA. HEENT: No pallor, no icterus. Pupils equal, round and reactive to light. Oral mucosa moist. NECK: No JVD, no neck masses. HEART: S1 and S2 heard. Regular rate and rhythm. No murmur, no gallop. RESPIRATORY SYSTEM: Normal AP diameter. No accessory muscle use. No wheezing, no crackles. ABDOMEN: Soft, bowel sounds present, nontender, no distention. CENTRAL NERVOUS SYSTEM: No facial droop. Speech is clear. Obeys simple commands. Moves extremities. EXTREMITIES: No edema, no erythema seen. Left knee dress w/ minimal serosanguinous soakage. Results & Data Results & Data Vital Signs (Past 12 Hours) Vital Signs Temp Pulse Resp BP Pulse Ox O2 Del Method 01/10/24 07:52 36.7 C 60 22 130/68 92 Room Air (1) Osteoarthritis of left knee Osteoarthritis type: primary Qualified Code(s): M17.12 - Unilateral primary osteoarthritis, left knee
== END 2024-01-10 13:19 | disposition home or self-care (01) ==
LOC: ASU 08:25 → 3N 08:25